=== PATIENT | female | born 1950 | race Caucasian/White ===

== ENCOUNTER 2017-03-13 06:17 | Emergency (ER) | payer MEDICARE ==
[2017-03-13] MEDS ORDERED: KETOROLAC 30 MG/ML 1 ML VIAL IVP STA (07:12)
[2017-03-13] MEDS ORDERED: ONDANSETRON 4 MG/2 ML VIAL IVP STA (07:12)
[2017-03-13] MEDS ORDERED: SODIUM CHLORIDE 0.9% 1,000 ML IV STA ×2 (07:12→07:31)
[2017-03-13] MEDS ORDERED: HYDROmorphone 1 MG/ML 1 ML SYRINGE IVP STA (07:12)
[2017-03-13 07:17] VITALS: RESP 18
--- NOTE | 2017-03-13 07:18 | ED ---
General Adult HPI - General Chief complaint: Abdominal Pain Stated complaint: vomiting, back pain Time Seen by Provider: 03/13/17 07:00 Source: patient, RN notes reviewed Mode of arrival: wheelchair Limitations: no limitations - History of Present Illness Initial comments: This is a 66-year-old female who presents emergency Department with a past medical history significant for kidney stones. Patient states her last treatment was last year. Patient states she started having pain on Thursday to felt exactly like her kidney stones. Patient states on the left flank it does not hurt to palpate. Patient states that she has had episodes of dry heaving. Patient states the pain radiates to the anterior abdomen little. Patient denies any fever chills per patient denies dysuria hematuria urinary frequency. Patient states this pain feels exactly the same as her kidney stone pain in the past. Patient states she's had multiple kidney stones. - Related Data Home Medications Medication Instructions Recorded Confirmed Aspirin [Adult Low Dose Aspirin EC] 81 mg PO DAILY 10/05/15 03/13/17 Cholecalciferol [Vitamin D3] 5,000 unit PO DAILY 10/05/15 03/13/17 Levothyroxine Sodium [Synthroid] 88 mcg PO DAILY 10/05/15 03/13/17 Losartan/Hydrochlorothiazide 1 tab PO DAILY 10/05/15 03/13/17 [Losartan-Hctz 100-25 mg Tab] Multivitamin,Therapeutic [Thera] 1 tab PO BID 03/13/17 03/13/17 Previous Rx's Medication Instructions Recorded Sulfamethox-Tmp 800-160Mg [Bactrim 1 each PO Q12HR #14 tab 03/13/17 DS 800-160 mg] Allergies Allergy/AdvReac Type Severity Reaction Status Date / Time No Known Allergies Allergy Verified 03/13/17 08:59 Review of Systems ROS Statement: Those systems with pertinent positive or pertinent negative responses have been documented in the HPI. ROS Other: All systems not noted in ROS Statement are negative. Past Medical History Past Medical History: Hypertension, Thyroid Disorder Additional Past Medical History / Comment(s): kidney stones History of Any Multi-Drug Resistant Organisms: None Reported Past Surgical History: Tubal Ligation Past Psychological History: No Psychological Hx Reported Smoking Status: Never smoker Past Alcohol Use History: None Reported Past Drug Use History: None Reported General Exam - General Exam Comments Initial Comments: GENERAL: Patient is well-developed and well-nourished. Patient is nontoxic and well- hydrated and is in mild distress. ENT: Neck is soft and supple. No significant lymphadenopathy is noted. Oropharynx is clear. Moist mucous membranes. Neck has full range of motion without eliciting any pain. EYES: The sclera were anicteric and conjunctiva were pink and moist. Extraocular movements were intact and pupils were equal round and reactive to light. Eyelids were unremarkable. PULMONARY: Unlabored respirations. Good breath sounds bilaterally. No audible rales rhonchi or wheezing was noted. CARDIOVASCULAR: There is a regular rate and rhythm without any murmurs gallops or rubs. ABDOMEN: Soft and nontender with normal bowel sounds. No palpable organomegaly was noted. There is no palpable pulsatile mass. Morbid obesity SKIN: Skin is clear with no lesions or rashes and otherwise unremarkable. NEUROLOGIC: Patient is alert and oriented x3. Cranial nerves II through XII are grossly intact. Motor and sensory are also intact. Normal speech, volume and content. Symmetrical smile. MUSCULOSKELETAL: Normal extremities with adequate strength and full range of motion. No lower extremity swelling or edema. No calf tenderness. LYMPHATICS: No significant lymphadenopathy is noted PSYCHIATRIC: Normal psychiatric evaluation. Normal interpersonal interactions appears functionally intact in deals appropriately with others. No signs of depression. No signs of anxiety. Limitations: no limitations Course Vital Signs 03/13/17 03/13/17 03/13/17 06:20 07:15 08:32 Temperature 98.2 F Pulse Rate 54 L 54 L 54 L Respiratory 16 18 18 Rate Blood Pressure 188/73 153/67 116/59 O2 Sat by Pulse 94 L 93 L 94 L Oximetry Medical Decision Making - Medical Decision Making CT shows a 0.4 cm kidney stone on the left proximal ureter with some mild hydronephrosis. Patient's urine showed possible urinary tract infectious I gave the patient 2 g of Rocephin. I went back in to see the patient she was much more comfortable and ready to go home. - Lab Data Result diagrams: 03/13/17 06:42 03/13/17 06:42 Lab Results 03/13/17 03/13/17 03/13/17 Range/Units 06:42 06:42 06:42 WBC 12.4 H (3.8-10.6) k/uL RBC 3.90 (3.80-5.40) m/uL Hgb 12.4 (11.4-16.0) gm/dL Hct 38.6 (34.0-46.0) % MCV 98.9 (80.0-100.0) fL MCH 31.6 (25.0-35.0) pg MCHC 32.0 (31.0-37.0) g/dL RDW 14.3 (11.5-15.5) % Plt Count 141 L (150-450) k/uL Neutrophils % 88 % Lymphocytes % 6 % Monocytes % 5 % Eosinophils % 0 % Basophils % 0 % Neutrophils # 10.9 H (1.3-7.7) k/uL Lymphocytes # 0.8 L (1.0-4.8) k/uL Monocytes # 0.6 (0-1.0) k/uL Eosinophils # 0.0 (0-0.7) k/uL Basophils # 0.0 (0-0.2) k/uL Sodium 141 (137-145) mmol/L Potassium 4.1 (3.5-5.1) mmol/L Chloride 103 (98-107) mmol/L Carbon Dioxide 27 (22-30) mmol/L Anion Gap 11 mmol/L BUN 39 H (7-17) mg/dL Creatinine 1.81 H (0.52-1.04) mg/dL Est GFR (MDRD) Af Amer 34 (>60 ml/min/1.73 sqM) Est GFR (MDRD) Non-Af 28 (>60 ml/min/1.73 sqM) Glucose 133 H (74-99) mg/dL Calcium 8.9 (8.4-10.2) mg/dL Total Bilirubin 1.4 H (0.2-1.3) mg/dL AST 24 (14-36) U/L ALT 37 (9-52) U/L Alkaline Phosphatase 80 (38-126) U/L Total Protein 6.7 (6.3-8.2) g/dL Albumin 3.8 (3.5-5.0) g/dL Amylase <30 L (30-110) U/L Lipase 40 (23-300) U/L Urine Color Yellow Urine Appearance Cloudy H (Clear) Urine pH 5.5 (5.0-8.0) Ur Specific [place] 1.015 (1.001-1.035) Urine Protein 1+ H (Negative) Urine Glucose (UA) Negative (Negative) Urine Ketones Negative (Negative) Urine Blood Large H (Negative) Urine Nitrite Positive H (Negative) Urine Bilirubin Negative (Negative) Urine Urobilinogen <2.0 (<2.0) mg/dL Ur Leukocyte Esterase Large H (Negative) Urine RBC >182 H (0-5) /hpf Urine WBC >182 H (0-5) /hpf Urine WBC Clumps Occasional H (None) /hpf Ur Squamous Epith Cells 2 (0-4) /hpf Urine Bacteria Occasional H (None) /hpf Critical Care Time Total Critical Care Time: 75 Disposition Clinical Impression: Kidney stone, Urinary tract infection Disposition: HOME SELF-CARE Condition: Good Instructions: Kidney Stones (ED), Urinary Tract Infection in Women (ED) Prescriptions: Sulfamethox-Tmp 800-160Mg [Bactrim DS 800-160 mg] 1 each PO Q12HR #14 tab Referrals: Keanu Villaseñor MD [Primary Care Provider] - 1-2 days Time of Disposition: 09:53
[2017-03-13] MEDS ORDERED: RX INFO: IV CONTRAST WAS GIVEN 1 EACH MISC MISCELLANE PRN (07:31)
[2017-03-13 07:32] LABS: Basophils % (A) 0 %; CH 31.6; CHCM 32.2; Eosinophils % (A) 0 %; HCT 38.6 % (34.0-46.0); HDW 2.36; HGB 12.4 gm/dL (11.4-16.0); Luc # (Auto) 0.08; Luc % (Auto) 1; Lymphocytes # (A) 0.8 k/uL (1.0-4.8); Lymphocytes % (A) 6 %; MCH 31.6 pg (25.0-35.0); MCV 98.9 fL (80.0-100.0); Mean Platelet Volume 8.2; Monocytes # (A) 0.6 k/uL (0-1.0); Monocytes % (A) 5 %; Neutrophils # (A) 10.9 k/uL (1.3-7.7); Neutrophils % (A) 88 %; RDW 14.3 % (11.5-15.5); WBC 12.4 k/uL (3.8-10.6); WBC (Perox) 13.49
[2017-03-13 07:37] LABS: Appearance,Urine Cloudy (Clear); Bacteria,Urine Occasional /hpf; Bilirubin,Urine Negative (Negative); Glucose,Urine (UA) Negative (Negative); Ketones,Urine Negative (Negative); Leukocyte Esterase,Urine Large (Negative); Nitrite,Urine Positive (Negative); PH, Urine 5.5 (5.0-8.0); Particle Count 7966; Protein,Urine 1+ (Negative); RBC,Urine >182 /hpf (0-5); Specific Gravity,Urine 1.015 (1.001-1.035); Squamous Epithelial Cell,Urine 2 /hpf (0-4); UA Billing (MACRO vs. MICRO) MICRO; Urobilinogen,Urine <2.0 mg/dL (<2.0); WBC,Urine >182 /hpf (0-5)
[2017-03-13 07:49] LABS: ALT 37 U/L (9-52); AST 24 U/L (14-36); Alkaline Phosphatase 80 U/L (38-126); Amylase <30 U/L (30-110); Anion Gap 11 mmol/L; Blood Urea Nitrogen 39 mg/dL (7-17); Calcium 8.9 mg/dL (8.4-10.2); Carbon Dioxide 27 mmol/L (22-30); Chloride 103 mmol/L (98-107); Glucose 133 mg/dL (74-99); Non-African American GFR(MDRD) 28 (>60 ml/min/1.73 sqM); Potassium 4.1 mmol/L (3.5-5.1); Sodium 141 mmol/L (137-145); Total Bilirubin 1.4 mg/dL (0.2-1.3); Total Protein 6.7 g/dL (6.3-8.2)
[2017-03-13] MEDS ORDERED: cefTRIAXone 2,000 MG in SODIUM CHLORIDE 0.9% 100 ML IVPB STA (08:12)
--- NOTE | 2017-03-13 08:29 | XR ---
Abdomen HISTORY: Pain, left flank pain Frontal view of the abdomen correlated to prior abdomen 04/26/2010, CT 03/13/2017 There is a calcification in the left hemipelvis which likely represents a phlebolith. Patient's proxi mal left ureteral calculus is not well seen likely due to technique, patient body habitus. There is o verlying bowel gas. The large right sided renal pelvic calcification is also obscured. There is no genevieve wel obstruction or pneumoperitoneum. IMPRESSION: Nephrolithiasis in bilateral kidneys and left ureter is better seen on CT. Bowel gas obsc ures detail.
[2017-03-13] MEDS ORDERED: PHENYTOIN SODIUM INJ 1,000 MG in SODIUM CHLORIDE 0.9% 100 ML IVPB STA (08:35)
--- NOTE | 2017-03-13 09:01 | CT ---
EXAMINATION TYPE: CT abdomen pelvis wo con DATE OF EXAM: 03/13/2017 COMPARISON: NONE INDICATION: Pt c/o Lt flank pain, hematuria, stone history DLP: 2031.1 mGycm, Automated exposure control for dose reduction was used. CONTRAST: 0 mL of Omnipaque 350. Study performed without Oral Contrast TECHNIQUE: Axial images were obtained from above the diaphragm to the pubic rami in the axial plane a t 5 mm thick sections. Reconstructed images are reviewed on the computer in the coronal plane. FINDINGS: Limited CT sections are obtained the lung bases. The lung bases are clear. Coronary artery calcific ation is noted. CT ABDOMEN: Liver: Normal Spleen: Normal Pancreas: There is fatty infiltration to the pancreas. Some atrophy is present. Adrenal glands: The adrenal glands are normal. Gallbladder: Normal Kidneys: Some mild perinephric stranding is present. Several nonobstructing renal stones are present bilaterally. This includes a 0.3 cm calcification posterior upper pole left kidney is 0.2 cm calcific ation mid lateral left kidney and a 0.8 cm calcification at the inferior pole left kidney. There is a n extrarenal pelvis. Mild left hydronephrosis is present. There is a proximal left ureteral stone concepcion suring 0.4 cm. Series 3 image 74. Within the right kidney is a large calcification in the renal pelvi s measuring 1.3 x 2.2 cm. Hydroureter is not identified. No renal masses are evident. No cysts are present. Aorta: Vascular calcification is within the aorta. Inferior vena cava: Normal. CT PELVIS: Loops of bowel within the abdomen and pelvis are normal. Study is without oral contrast limiting bowel loop evaluation. Appendix: Normal as visualized. Urinary bladder: Decompressed with limited evaluation. Genitourinary structures: Uterus appears somewhat full for the patient age. Adnexal regions are clear . Osseous structures: No suspicious lytic or sclerotic lesions. IMPRESSIONS: 1. 0.4 cm proximal left ureteral stone with mild left hydronephrosis and hydroureter. 2. Bilateral nonobstructing renal stones. Large calcifications in the right renal pelvis.
[2017-03-13 10:30] VITALS: BP 126/61; PULSE 50; TEMP 97.1
== END 2017-03-13 10:28 | disposition home or self-care (01) ==
LOC: EC 06:17
DX: N20.0 Calculus of kidney (principal); N39.0 Urinary tract infection, site not specified; I10 Essential (primary) hypertension; E07.9 Disorder of thyroid, unspecified; Z98.51 Tubal ligation status; E66.01 Morbid (severe) obesity due to excess calories; Z68.42 Body mass index [BMI] 45.0-49.9, adult; Z79.82 Long term (current) use of aspirin; Z79.899 Other long term (current) drug therapy
CPT/HCPCS: 99285 ×2; 96365 ×2; 96375 ×4; 96361 ×2; 36415; 80053; 82150; 83690; 85025; 81001; 74000; 74176; J2405; J0696; J1885; J1170

== ENCOUNTER → 2018-09-07 | Outpatient (CLI) | payer MEDICARE ==
--- NOTE | 2018-09-07 09:05 | US ---
EXAMINATION TYPE: US gallbladder DATE OF EXAM: 09/07/2018 COMPARISON: NONE CLINICAL HISTORY: R10.11 R upper quad pain. RLQ pain, history of kidney stones EXAM MEASUREMENTS: Liver Length: 15.5 cm Gallbladder Wall: 0.3 cm CBD: 0.6 cm Right Kidney: 11.1 x 5.1 x 5.5 cm Pancreas: tail obscured by overlying bowel content Liver: There may be some mild fatty infiltration within the liver. No discrete masses or cysts are e vident. Gallbladder: no evidence of stones Evidence for sonographic Asher's sign: no CBD: wnl Right Kidney: stones noted, largest at mid = 1.9cm . This correlates with the CT finding of 017. IMPRESSION: 1. Nonobstructing large right renal pelvic stone. 2. Mild fatty infiltration liver.
== END ==
LOC: RADUSWWP 07:24
PROVIDERS: ATTEND Family Medicine
DX: K76.0 Fatty (change of) liver, not elsewhere classified (principal); N20.0 Calculus of kidney
CPT/HCPCS: 76705

== ENCOUNTER 2018-10-01 09:32 | Inpatient (IN) | payer MEDICARE ==
[2018-10-01 10:31] LABS: Basophils % (A) 0 %; Eosinophils # (A) 0.2 k/uL (0-0.7); Eosinophils % (A) 2 %; HCT 44.8 % (34.0-46.0); HGB 14.5 gm/dL (11.4-16.0); Lymphocytes # (A) 1.2 k/uL (1.0-4.8); Lymphocytes % (A) 11 %; MCH 30.5 pg (25.0-35.0); MCHC 32.3 g/dL (31.0-37.0); MCV 94.6 fL (80.0-100.0); Mean Platelet Volume 7.7; Monocytes # (A) 0.4 k/uL (0-1.0); Monocytes % (A) 4 %; Neutrophils # (A) 9.1 k/uL (1.3-7.7); Neutrophils % (A) 82 %; Platelet Count 120 k/uL (150-450); RBC 4.74 m/uL (3.80-5.40); RDW 13.6 % (11.5-15.5); WBC 11.1 k/uL (3.8-10.6)
[2018-10-01 10:45] LABS: Albumin 4.1 g/dL (3.5-5.0); Calcium 9.3 mg/dL (8.4-10.2); Magnesium 1.8 mg/dL (1.6-2.3); Potassium 4.4 mmol/L (3.5-5.1); Total Bilirubin 1.5 mg/dL (0.2-1.3); Total Protein 6.7 g/dL (6.3-8.2)
[2018-10-01] MEDS ORDERED: NALOXONE 0.4 MG/ML 1 ML VIAL IV PRN (10:47)
[2018-10-01] MEDS ORDERED: HEPARIN SODIUM,PORCINE 5,000 UNIT/ML 1 ML VIAL IV STA (10:48)
[2018-10-01] MEDS ORDERED: ASPIRIN 81 MG PO STA (10:48)
[2018-10-01] MEDS ORDERED: ATORVASTATIN 80 MG TAB PO STA (10:48)
--- NOTE | 2018-10-01 10:51 | XR ---
EXAMINATION TYPE: XR chest 2V DATE OF EXAM: 10/01/2018 COMPARISON: NONE TECHNIQUE: PA and lateral views submitted. HISTORY: Difficulty breathing FINDINGS: The lungs are clear and there is no pneumothorax, pleural effusion, or focal pneumonia. Hypertrophi c and degenerative change of the spine. Arthropathy of the AC joints. No overt failure. Mild prominen ce the pulmonary arteries. IMPRESSION: 1. No acute process. Mild prominence the pulmonary arteries correlate for pulmonary arterial hyperten aleah.
--- NOTE | 2018-10-01 10:53 | ED ---
General Adult HPI - General Chief complaint: Shortness of Breath Stated complaint: dizziness Time Seen by Provider: 10/01/18 09:52 Source: patient, RN notes reviewed, old records reviewed Mode of arrival: wheelchair Limitations: no limitations - History of Present Illness Initial comments: 67-year-old female presenting with exertional dyspnea and diaphoresis. Symptoms began over the past 24 hours. Denies any chest pain, denies jaw pain or arm pain. She has no history of coronary artery disease. No history diabetes. She is a nonsmoker. She has no history of DVT or PE. She has no complaints time my evaluation, no dyspnea, no nausea, no chest pain. Denies abdominal pain vomiting or diarrhea. Denies fever or chills. Denies cough. She did have URI symptoms approximately 1 month prior, she states the symptoms have resolved. - Related Data Home Medications Medication Instructions Recorded Confirmed Levothyroxine Sodium [Synthroid] 88 mcg PO DAILY 10/05/15 10/01/18 Losartan/Hydrochlorothiazide 1 tab PO DAILY 10/05/15 10/01/18 [Losartan-Hctz 100-25 mg Tab] Theralith 2 mg PO HS 10/01/18 10/01/18 Theralith 3 tab PO DAILY 10/01/18 10/01/18 Allergies Allergy/AdvReac Type Severity Reaction Status Date / Time No Known Allergies Allergy Verified 10/01/18 10:17 Review of Systems ROS Statement: Those systems with pertinent positive or pertinent negative responses have been documented in the HPI. ROS Other: All systems not noted in ROS Statement are negative. Past Medical History Past Medical History: Hypertension, Thyroid Disorder Additional Past Medical History / Comment(s): kidney stones History of Any Multi-Drug Resistant Organisms: None Reported Past Surgical History: Tubal Ligation Past Psychological History: No Psychological Hx Reported Smoking Status: Never smoker Past Alcohol Use History: None Reported Past Drug Use History: None Reported General Exam Limitations: no limitations General appearance: alert, in no apparent distress Head exam: Present: atraumatic, normocephalic Eye exam: Present: normal appearance, PERRL ENT exam: Present: normal exam Neck exam: Present: normal inspection. Absent: tenderness, meningismus Respiratory exam: Present: normal lung sounds bilaterally. Absent: respiratory distress, wheezes Cardiovascular Exam: Present: regular rate, normal rhythm GI/Abdominal exam: Present: soft. Absent: distended, tenderness, guarding Extremities exam: Present: normal inspection, normal capillary refill. Absent: pedal edema Neurological exam: Present: alert, oriented X3, CN II-XII intact. Absent: motor sensory deficit Psychiatric exam: Present: normal affect, normal mood Skin exam: Present: warm, dry, intact. Absent: cyanosis, diaphoretic Course Vital Signs 10/01/18 09:44 Temperature 97.4 F L Pulse Rate 94 Respiratory 18 Rate Blood Pressure 104/71 O2 Sat by Pulse 95 Oximetry - Reevaluation(s) Reevaluation #1: 10/01/18 10:[address] Garrett regarding EKG changes, patient will be taken to the Release And Technical Records Clerk for urgent heart cath. EKG Findings - EKG Comments: EKG Findings:: EKG: Normal sinus rhythm, incomplete right bundle, age indeterminant inferior and anterior infarct, rate of 92, Q ROS 102, NE interval 176, QTC 487, there is Q-wave and T-wave inversion in the inferior leads, there is question ST segment elevation in lead 3, and V3, no reciprocal change. Medical Decision Making - Medical Decision Making 67-year-old female with dyspnea and diaphoresis. She is asymptomatic at the time my evaluation. EKG is obtained, there is some concern for ischemia with T- wave inversion in the inferior leads, and minimal ST segment elevation in lead 3. This is reviewed by cardiology, given the symptoms patient will be taken urgently to [facility] And Technical Records Clerk. Laboratory studies, chest x-ray are pending. Patient is given aspirin, Lipitor, heparin emergency department and taken urgently to the Release And Technical Records Clerk. Case is discussed with the admitting physician Dr. Walters - Lab Data Result diagrams: 10/01/18 10:15 10/01/18 10:15 Lab Results 10/01/18 10/01/18 Range/Units 10:15 10:15 WBC 11.1 H (3.8-10.6) k/uL RBC 4.74 (3.80-5.40) m/uL Hgb 14.5 (11.4-16.0) gm/dL Hct 44.8 (34.0-46.0) % MCV 94.6 (80.0-100.0) fL MCH 30.5 (25.0-35.0) pg MCHC 32.3 (31.0-37.0) g/dL RDW 13.6 (11.5-15.5) % Plt Count 120 L (150-450) k/uL Neutrophils % 82 % Lymphocytes % 11 % Monocytes % 4 % Eosinophils % 2 % Basophils % 0 % Neutrophils # 9.1 H (1.3-7.7) k/uL Lymphocytes # 1.2 (1.0-4.8) k/uL Monocytes # 0.4 (0-1.0) k/uL Eosinophils # 0.2 (0-0.7) k/uL Basophils # 0.0 (0-0.2) k/uL Sodium 142 (137-145) mmol/L Potassium 4.4 (3.5-5.1) mmol/L Chloride 107 (98-107) mmol/L Carbon Dioxide 26 (22-30) mmol/L Anion Gap 9 mmol/L BUN 31 H (7-17) mg/dL Creatinine 1.00 (0.52-1.04) mg/dL Est GFR (CKD-EPI)AfAm 67 (>60 ml/min/1.73 sqM) Est GFR (CKD-EPI)NonAf 58 (>60 ml/min/1.73 sqM) Glucose 167 H (74-99) mg/dL Calcium 9.3 (8.4-10.2) mg/dL Magnesium 1.8 (1.6-2.3) mg/dL Total Bilirubin 1.5 H (0.2-1.3) mg/dL AST 30 (14-36) U/L ALT 39 (9-52) U/L Alkaline Phosphatase 83 (38-126) U/L Total Protein 6.7 (6.3-8.2) g/dL Albumin 4.1 (3.5-5.0) g/dL Critical Care Time Critical Care Time: Yes Total Critical Care Time: 25 Disposition Clinical Impression: Dyspnea, STEMI (ST elevation myocardial infarction) Disposition: ADMITTED IP TO THIS HOSP Condition: Serious Is patient prescribed a controlled substance at d/c from ED?: No Referrals: Keanu Villaseñor MD [Primary Care Provider] - 1-2 days Decision to Admit Reason: Admit from EC Decision Date: 10/01/18 Decision Time: 10:53
[2018-10-01 11:01] LABS: Partial Thromboplastin Time 23.3 sec (22.0-30.0); Prothrombin Time 10.8 sec (9.0-12.0)
[2018-10-01] MEDS ORDERED: VERAPAMIL 2.5 MG/ML 2 ML AMP ONE (11:06)
[2018-10-01 11:13] LABS: D-Dimer 12.54 mg/L FEU (<0.60)
[2018-10-01] MEDS ORDERED: SODIUM CHLORIDE 0.9% 1,000 ML IV ONE (11:16)
[2018-10-01] MEDS ORDERED: IV FLUID CONTINUATION 1,000 ML IV ONE (11:16)
[2018-10-01] MEDS: LIDOCAINE 1% INJ 10MG/ML (20 ML MDV) SQ ONE ×2 (11:19→11:27)
[2018-10-01] MEDS ORDERED: MIDAZOLAM (PF) 2 MG/2 ML VIAL IVP ONE (11:19)
[2018-10-01] MEDS ORDERED: IOPAMIDOL-370 100ML BTL INJ ONE (11:32)
[2018-10-01] MEDS ORDERED: RX INFO: IV CONTRAST WAS GIVEN 1 EACH MISC MISCELLANE PRN (11:43)
[2018-10-01] MEDS ORDERED: SODIUM CHLORIDE 0.9% 1,000 ML IV SCH (11:45)
--- NOTE | 2018-10-01 11:47 | P.CRDCN ---
History of Present Illness Consult date: 10/01/18 Chief complaint: Shortness of breath History of present illness: This is a pleasant 67-year-old female patient with a past medical hist ory significant for hypertension as well as hypothyroidism presented to the emergency room complaining of shortness of breath. The patient was in her usual state of health yesterday when she noticed shortness of breath with exertion associated with Phoresis. No symptoms of chest pain or chest discomfort, no symptoms of jaw pain, arm pain, dizziness, heart racing, or syncope. No established history of coronary artery disease or congestive heart failure or cardiac arrhythmia. In the emergency room, the EKG showed sinus rhythm with ST changes concerning for ischemia. The troponin came in to be slightly elevated. Because of that an emergent heart catheterization was advised. Heart cathete rization revealed normal coronaries. The left ventricular end-diastolic pressure was also within normal limits. Subsequently we knew that the patient d-dimer came in to be elevated. She is in process of having a CTA of the chest. Past Medical History Past Medical History: Hypertension, Thyroid Disorder Additional Past Medical History / Comment(s): kidney stones History of Any Multi-Drug Resistant Organisms: None Reported Past Surgical History: Tubal Ligation Past Psychological History: No Psychological Hx Reported Smoking Status: Never smoker Past Alcohol Use History: None Reported Past Drug Use History: None Reported Medications and Allergies Home Medications Medication Instructions Recorded Confirmed Type Levothyroxine Sodium [Synthroid] 88 mcg PO DAILY 10/05/15 10/01/18 History Losartan/Hydrochlorothiazide 1 tab PO DAILY 10/05/15 10/01/18 History [Losartan-Hctz 100-25 mg Tab] Theralith 2 mg PO HS 10/01/18 10/01/18 History Theralith 3 tab PO DAILY 10/01/18 10/01/18 History Allergies Allergy/AdvReac Type Severity Reaction Status Date / Time No Known Allergies Allergy Verified 10/01/18 10:17 Physical Exam Vitals: Vital Signs Temp Pulse Resp BP Pulse Ox 10/01/18 10:59 88 18 109/88 99 10/01/18 09:44 97.4 F L 94 18 104/71 95 Intake and Output 09/30/18 10/01/18 10/01/18 22:59 06:59 14:59 Intake Total 100 Balance 100 Intake: IV 100 Other: Weight 126.099 kg - Constitutional General appearance: no acute distress - Respiratory Respiratory: bilateral: CTA - Cardiovascular Rhythm: regular Heart sounds: normal: S1, S2 Abnormal Heart Sounds: systolic murmur Results 10/01/18 10:15 10/01/18 10:15 Cardiac Enzymes 10/01/18 10/01/18 Range/Units 10:15 10:15 AST 30 (14-36) U/L Troponin I 0.267 H* (0.000-0.034) ng/mL Coagulation 10/01/18 Range/Units 10:15 PT 10.8 (9.0-12.0) sec APTT 23.3 (22.0-30.0) sec CBC 10/01/18 Range/Units 10:15 WBC 11.1 H (3.8-10.6) k/uL RBC 4.74 (3.80-5.40) m/uL Hgb 14.5 (11.4-16.0) gm/dL Hct 44.8 (34.0-46.0) % Plt Count 120 L (150-450) k/uL Comprehensive Metabolic Panel 10/01/18 Range/Units 10:15 Sodium 142 (137-145) mmol/L Potassium 4.4 (3.5-5.1) mmol/L Chloride 107 (98-107) mmol/L Carbon Dioxide 26 (22-30) mmol/L BUN 31 H (7-17) mg/dL Creatinine 1.00 (0.52-1.04) mg/dL Glucose 167 H (74-99) mg/dL Calcium 9.3 (8.4-10.2) mg/dL AST 30 (14-36) U/L ALT 39 (9-52) U/L Alkaline Phosphatase 83 (38-126) U/L Total Protein 6.7 (6.3-8.2) g/dL Albumin 4.1 (3.5-5.0) g/dL Current Medications Generic Name Dose Route Start Last Admin Trade Name Freq PRN Reason Stop Dose Admin Sodium Chloride 1,000 mls @ 75 mls/hr 10/01/18 11:45 Saline 0.9% IV 10/01/18 19:46 .[id number] AYESHA Miscellaneous Information 1 each 10/01/18 11:43 Rx Info: Iv Contrast Was Given MISCELLANE 10/03/18 11:43 DAILY PRN Per Protocol Naloxone HCl 0.2 mg 10/01/18 10:47 Narcan IV Q2M PRN Opioid Reversal Intake and Output 09/30/18 10/01/18 10/01/18 22:59 06:59 14:59 Intake Total 100 Balance 100 Intake: IV 100 Other: Weight 126.099 kg Patient Weight 10/02/18 06:59 Weight 126.099 kg 10/01/18 10:15 10/01/18 10:15 Assessment and Plan Assessment: assessment #1 shortness of breath associated with sweating #2 hypertension #3 hypothyroidism #4 elevated d-dimer Plan #1 the heart catheterization revealed normal coronaries #2 the patient is in process of having CTA of the chest #3 obtain an echocardiogram was Doppler #4 follow-up with the patient Thank you for allowing us participate in her care
--- NOTE | 2018-10-01 12:05 | CC ---
CARDIAC CATHETERIZATION REPORT DATE OF SERVICE: October 01, 2018 PERFORMING PHYSICIAN: Sony Garrett MD, industrial controls technician. PROCEDURE PERFORMED: 1. Selective right and left coronary angiogram. 2. Left heart catheterization. INDICATION: This is a 67-year-old female patient who presented to the emergency room with shortness of breath associated with sweating. There was some concern regarding severe underlying coronary artery disease and because of that, heart catheterization was advised. APPROACH: Right common femoral artery. COMPLICATION: None LEVEL OF SEDATION: Moderate with sedation length of 20 minutes. PROCEDURE DESCRIPTION: After obtaining an informed consent, the patient was brought to cardiac dental lab technician. The right common femoral artery was cannulated using micropuncture technique, the micropuncture wire passed easily then I placed a 6-Pakistani sheath in the right common femoral artery. After that I did selective right and left coronary angiogram using JR4 and JL4 catheter. Left heart catheterization was performed using 6-Pakistani pigtail catheter. Procedure was completed without any complication. SELECTIVE CORONARY ANGIOGRAM: 1. The right coronary artery is a large caliber vessel. It is a dominant vessel and appeared to be angiographically normal. 2. Left main is angiographically normal. It bifurcates into left circumflex and left anterior descending artery. 3. Left circumflex is a large caliber vessel. It is a nondominant vessel and appeared to be angiographically normal. The midportion gives rise into a large OM branch which appeared to be normal. 4. The LAD: The proximal LAD appeared to be angiographically normal. The mid LAD appeared to have a segment of myocardial bridging. The LAD distally appeared to be normal. The LAD does not reach the apex. It gives rise into 2 diagonal branches in the midportion and one diagonal branch in the proximal portion. HEMODYNAMICS: The left ventricular end-diastolic pressure was 10 mmHg. No gradient was identified across the aortic valve. CONCLUSION: 1. Normal coronary angiogram. 2. Normal left ventricular end-diastolic pressure. MMODL / IJN: [id number] /
--- NOTE | 2018-10-01 12:29 | CT ---
EXAMINATION TYPE: CT angio chest DATE OF EXAM: 10/01/2018 12:08 PM COMPARISON: None HISTORY: Shortness of breath and chest pain CT DLP: 529.7 mGycm Automated exposure control for dose reduction was used. CONTRAST: CTA scan of the thorax is performed with IV Contrast, patient injected with 80 mL of Isovue 370, pulm onary embolism protocol. . FINDINGS: LUNGS: Biapical pleural. No pneumothorax. No consolidation. No pleural effusion or pneumothorax. No c onsolidative pneumonia. 2 mm apical lung nodule on the right noted. MEDIASTINUM: There are large bilateral central pulmonary embolism extending into the secondary branch es and distal branches bilaterally. There is involvement of both main pulmonary arteries. The RV :LV ratio is greater than 1 suggestive of right ventricular strain. Report called to the patient's nurse in the ICU. OTHER: There is air within the SVC, bilateral subclavian vein and subcutaneous veins of the anterior chest. Small amount of pneumomediastinum not excluded. Hypertrophic and degenerative change of the v ertebral column. IMPRESSION: 1. Massive bilateral central pulmonary embolism extending into the secondary and distal branches bila terally. Report called to the referring physician and nurse. Correlate for right ventricular strain. 2. There is air within the SVC and bilateral subclavian vein as well as smaller venous structures wit hin the anterior chest. Air noted on image 46 within the anterior mediastinum likely is related to ve nous air rather than pneumomediastinum but should be correlated clinically. Etiology uncertain correl ate clinically. 3. There is a 2 mm right upper lobe apical lung nodule. Recommend 6 month follow-up to confirm stabil ity.
[2018-10-01] MEDS ORDERED: HEPARIN SODIUM,PORCINE 5,000 UNIT/ML 1 ML VIAL IV PRN (13:04)
[2018-10-01] MEDS ORDERED: HEPARIN SOD,PORK IN 0.45% NACL 25,000 UNIT in 0.45% NACL 1 250ML.BAG IV SCH (13:15)
[2018-10-01 14:22] VITALS: RESP 16; TEMP 97.3
[2018-10-01 14:48] VITALS: BP 135/80; PULSE 82
[2018-10-02] MEDS ORDERED: LEVOTHYROXINE 88 MCG TAB PO SCH (06:30)
[2018-10-02] MEDS ORDERED: LOSARTAN-HCTZ 50-12.5 MG 1 EACH TAB PO SCH (09:00)
--- NOTE | 2018-10-02 10:13 | HP ---
HISTORY AND PHYSICAL HISTORY AND PHYSICAL AND DISCHARGE SUMMARY: DATE OF ADMISSION: 10/01/2018 DATE OF TRANSFER: 10/01/2018 DATE OF SERVICE: 10/01/2018. PRESENTING COMPLAINT: Short of breath. HISTORY OF PRESENTING COMPLAINT: This is a pleasant 67-year-old patient of Dr. Keanu Villaseñor whose chronic stable medical conditions include hypertension, hypothyroid, kidney stones, morbid obesity. Patient earlier today presented to the ER as patient had been having increasing shortness of breath that started in a span of about over 24 hours. Also patient was getting diaphoretic. There was no chest pain, no jaw pain. Denies any prior cardiac history. There was no leg swelling or increased, normal mobility, and patient presented to the ER. The patient's EKG showed some changes in the inferior wall with flipped T- waves and troponin was 0.267. Hence from the ER, Cardiology was called and patient was taken to the director of laboratory operations where coronaries came back to be normal. The patient's D-dimer was 12.5. Subsequently from the director of laboratory operations, the patient went for a chest CTA and patient was found to have bilateral central pulmonary embolism extending into the secondary branches and distal processes bilaterally with involvement of both the main pulmonary arteries. Also, there was significant ventricular strain. The patient was then sent to the extended care unit and then admitted to the telemetry floor where I saw the patient and her . There has been no leg swelling. REVIEW OF SYSTEMS: CONSTITUTIONAL: None. HEENT: None. RESPIRATORY: As above. CARDIOVASCULAR: As above GASTROINTESTINAL: None. GENITOURINARY: None. MUSCULOSKELETAL: Some pain in the joints. DERMATOLOGICAL: None. HEMATOLOGIC: None. LYMPHATICS: None. PSYCHIATRY: None. NEUROLOGICAL: None. PAST MEDICAL HISTORY: Hypertension, hypothyroid, kidney stones. PAST SURGICAL HISTORY: Tubal ligation. SOCIAL HISTORY: No smoking, no alcohol. . FAMILY HISTORY: Reviewed, noncontributory to presentation. HOME MEDICATIONS: 1. Theralith 2 mg in the evening, 3 tablets in the morning. 2. Losartan hydrochlorothiazide 1 tablet p.o. daily, 100/25. 3. Synthroid 88 mcg a day. ALLERGIES: None. PHYSICAL EXAMINATION: On examination, vital signs on presentation, temperature 97.4 pulse 94, respiratory 18, blood pressure 104/71, pulse ox 95% on room air. GENERAL APPEARANCE: Well built, BMI 42.3. Lying in bed, not in distress/ EYES: Pupils equal. Conjunctivae normal. HEENT: External appearance of nose and ears normal. Oral cavity normal. NECK: JVD not raised. Mass not palpable. RESPIRATORY: Effort increased. LUNGS: Distant breath sounds. CARDIOVASCULAR: Heart sounds muffled. No edema. ABDOMEN: Distended, soft. Liver and spleen not palpable. LYMPHATIC: No lymph nodes palpable in the neck and axilla. PSYCHIATRY: Alert and oriented x3. Mood and affect normal. NEUROLOGICAL: Pupils equal. Cranial nerves grossly intact. Power and sensation grossly intact. INVESTIGATIONS: White count 9.1, hemoglobin 14.5, platelets 120. D-dimer 12.5. Potassium 4.4, BUN 31, creatinine 1.0. Troponin I 0.0267. EKG tracing personally reviewed by me shows some flipped T-waves. Chest x-ray film personally reviewed by me, no major abnormalities noted. Chest CTA showed bilateral pulmonary embolism with right ventricular strain. ASSESSMENT: 1. Acute bilateral massive pulmonary embolism causing right ventricular strain. 2. Positive troponin, likely from right ventricular strain from massive pulmonary embolism. 3. Cardiac catheterization showing normal coronaries. 4. Morbid obesity, body mass index 42.3. 5. Essential hypertension. 6. Hypothyroidism. 7. Chronic kidney disease/nephrolithiasis. PLAN: I discussed the care with Dr. Garrett from Cardiology given the radiological findings and he agreed that the patient should be transferred to a higher level of care. Also spoke to Dr. Miles on the phone about the same. Then I contacted Dr. Wright at [facility] who was in the OR and I spoke to him over the phone. He did accept the patient. Prior to this, I already spoke to the patient and her and they were agreeable for transfer for higher level of care for intervention. Earlier Dr. Randhawa from the ER had spoken to him. He has already ordered IV heparin. I spoke to the family preservation caseworker and the nurse and made arrangements for patient to be transferred down. This is both a history physical and discharge summary on this patient. MMODL / IJN: [id number] /
--- NOTE | 2018-10-02 13:52 | DS ---
DISCHARGE SUMMARY ADDENDUM: For my discharge summary, please refer to my H and P as dictated before. MMMERCYL / IJN: [id number] /
--- NOTE | 2018-10-03 07:41 | ECHOF ---
Referral Reason:sob MEASUREMENTS -------- HEIGHT: 172.7 cm WEIGHT: 126.1 kg BP: 109/88 RVIDd: 3.5 cm (< 3.3) IVSd: 1.5 cm (0.6 - 1.1) LVIDd: 2.9 cm (3.9 - 5.3) LVPWd: 1.3 cm (0.6 - 1.1) IVSs: 1.7 cm LVIDs: 2.2 cm LVPWs: 1.7 cm LA Diam: 3.0 cm (2.7 - 3.8) LAESV Index (A-L): 13.95 ml/m Ao Diam: 3.3 cm (2.0 - 3.7) AV Cusp: 2.5 cm (1.5 - 2.6) MV EXCURSION: 12.690 mm (> 18.000) MV EF SLOPE: 14 mm/s (70 - 150) EPSS: 0.7 cm MV E Elia: 0.53 m/s MV DecT: 301 ms MV A Elia: 1.07 m/s MV E/A Ratio: 0.50 RAP: 15.00 mmHg RVSP: 51.64 mmHg FINDINGS -------- Sinus rhythm. This was a technically adequate study. The left ventricular size is normal. There is moderate concentric left ventricular hypertrophy. O verall left ventricular systolic function is normal with, an EF between 60 - 65 %. The right ventricle is moderately enlarged. The left atrial size is normal. The right atrium is normal in size. The aortic valve is trileaflet and appears structurally normal. Mild mitral annular calcification present. There is trace mitral regurgitation. Vgki-xy-apxbeezn tricuspid regurgitation present. There is moderate pulmonary hypertension. The r ight ventricular systolic pressure, as measured by Doppler, is 51.64mmHg. Trace/mild (physiologic) pulmonic regurgitation. The aortic root size is normal. The inferior vena cava is dilated with no significant inspiratory collapse which is consistent estima marianna right atrial pressure of >15 mmHg. There is no pericardial effusion. CONCLUSIONS -------- 1. Sinus rhythm. 2. This was a technically adequate study. 3. The left ventricular size is normal. 4. There is moderate concentric left ventricular hypertrophy. 5. Overall left ventricular systolic function is normal with, an EF between 60 - 65 %. 6. The right ventricle is moderately enlarged. 7. The left atrial size is normal. 8. The right atrium is normal in size. 9. The aortic valve is trileaflet and appears structurally normal. 10. Mild mitral annular calcification present. 11. There is trace mitral regurgitation. 12. Fpey-zi-oxuodnkf tricuspid regurgitation present. 13. There is moderate pulmonary hypertension. 14. The right ventricular systolic pressure, as measured by Doppler, is 51.64mmHg. 15. Trace/mild (physiologic) pulmonic regurgitation. 16. The aortic root size is normal. 17. The inferior vena cava is dilated with no significant inspiratory collapse which is consistent es timated right atrial pressure of >15 mmHg. 18. There is no pericardial effusion. PIT RECORDER: Sandra Rod RDCS
== END 2018-10-01 14:36 | disposition short-term general hospital (02) | DRG 176 ==
LOC: EC 09:32 → 3SCARD 10:47 → 2SICU 11:11 → 3SCARD 12:30
PROVIDERS: ADMIT Hospitalist; ATTEND Hospitalist
PROC: B2111ZZ Fluoroscopy of Multiple Coronary Arteries using Low Osmolar Contrast (ICD-10-PCS; 2018-10-01)
PROC: 4A023N7 Measurement of Cardiac Sampling and Pressure, Left Heart, Percutaneous Approach (ICD-10-PCS; principal; 2018-10-01 10:40)
DX: I26.99 Other pulmonary embolism without acute cor pulmonale (principal); Z68.41 Body mass index [BMI] 40.0-44.9, adult; E66.01 Morbid (severe) obesity due to excess calories; N18.9 Chronic kidney disease, unspecified; E03.9 Hypothyroidism, unspecified; I12.9 Hypertensive chronic kidney disease with stage 1 through stage 4 chronic kidney disease, or unspecified chronic kidney disease; Z98.51 Tubal ligation status; Z79.890 Hormone replacement therapy; Z87.442 Personal history of urinary calculi
CPT/HCPCS: 36415; 71046; 71275; 80053; 83735; 83880; 84484; 85025; 85379; 85610; 85730; 93005; 93306; 93458; 96374; 99285

== ENCOUNTER 2018-10-16 09:02 | Emergency (ER) | payer MEDICARE ==
--- NOTE | 2018-10-16 09:35 | ED ---
General Adult HPI - General Chief complaint: Urogenital Stated complaint: POSS UTI Time Seen by Provider: 10/16/18 09:09 Source: patient, EMS, RN notes reviewed, old records reviewed Mode of arrival: EMS Limitations: no limitations - History of Present Illness Initial comments: 59-year-old female presents returns today for evaluation for urinary tract i nfection symptoms, frequent urination and dysuria as well as hematuria. Patient reports that she is currently staying at [facility] after being hospitalized for bilateral pulmonary embolisms at [facility]. Patient reports that she's been at [facility] October 08. She states that she was having the symptoms 3 days ago and had urine sample and blood work obtained. She reports that she was unable to get the results from the providers at [facility] and was transferred here for evaluation. Patient states that she's not on any antibiotics currently. She has history of kidney stones but denies any flank pain. She denies fevers or chills. Patient states that she otherwise is improving since her recent diagnosis of bilateral PEs. She was placed on several toe at this time. - Related Data Home Medications Medication Instructions Recorded Confirmed Levothyroxine Sodium [Synthroid] 88 mcg PO DAILY 10/05/15 10/01/18 Losartan/Hydrochlorothiazide 1 tab PO DAILY 10/05/15 10/01/18 [Losartan-Hctz 100-25 mg Tab] Theralith 2 mg PO HS 10/01/18 10/01/18 Theralith 3 tab PO DAILY 10/01/18 10/01/18 Previous Rx's Medication Instructions Recorded Cephalexin [Keflex] 500 mg PO Q8HR #21 cap 10/16/18 Phenazopyridine HCl [Pyridium] 100 mg PO TID #9 tab 10/16/18 Allergies Allergy/AdvReac Type Severity Reaction Status Date / Time No Known Allergies Allergy Verified 10/16/18 09:05 Review of Systems ROS Statement: Those systems with pertinent positive or pertinent negative responses have been documented in the HPI. ROS Other: All systems not noted in ROS Statement are negative. Past Medical History Past Medical History: Hypertension, Pulmonary Embolus (PE), Thyroid Disorder Additional Past Medical History / Comment(s): kidney stones History of Any Multi-Drug Resistant Organisms: None Reported Past Surgical History: Tubal Ligation Past Psychological History: No Psychological Hx Reported Smoking Status: Never smoker Past Alcohol Use History: None Reported Past Drug Use History: None Reported General Exam - General Exam Comments Initial Comments: 67-year-old female. Alert and oriented 3. No significant distress. Limitations: no limitations General appearance: alert, in no apparent distress Head exam: Present: atraumatic, normocephalic, normal inspection Eye exam: Present: normal appearance, PERRL, EOMI. Absent: scleral icterus, conjunctival injection, periorbital swelling ENT exam: Present: normal exam, mucous membranes moist Neck exam: Present: normal inspection. Absent: tenderness, meningismus, lymphadenopathy Respiratory exam: Present: normal lung sounds bilaterally. Absent: respiratory distress, wheezes, rales, rhonchi, stridor Cardiovascular Exam: Present: regular rate, normal rhythm, normal heart sounds. Absent: systolic murmur, diastolic murmur, rubs, gallop, clicks GI/Abdominal exam: Present: soft, normal bowel sounds. Absent: distended, tenderness, guarding, rebound, rigid Extremities exam: Present: normal inspection, full ROM, normal capillary refill. Absent: tenderness, pedal edema, joint swelling, calf tenderness Back exam: Present: normal inspection Neurological exam: Present: alert, oriented X3, CN II-XII intact Psychiatric exam: Present: normal affect, normal mood Course Vital Signs 10/16/18 09:05 Temperature 97.1 F L Pulse Rate 73 Respiratory 18 Rate Blood Pressure 160/64 O2 Sat by Pulse 100 Oximetry Medical Decision Making - Medical Decision Making Patient is a 59-year-old female presents today for evaluation for complaints of dysuria. She presents from a care facility. She is recently admitted for PEs. She states that her last hemoglobin on discharge was 7.6. Is now increased to 9.9. Denies any bloody stools or other complaints. Patient urinalysis is positive for infection. White blood cell, spell. She denies any pain to this time. Patient was given 2 g of Rocephin we'll discharge the Pat ient with antibiotics for UTI. Discussed following up with her primary care doctor and urine culture completed. - Lab Data Result diagrams: 10/16/18 09:10 10/16/18 09:10 Lab Results 10/16/18 10/16/18 10/16/18 Range/Units 09:10 09:10 09:10 WBC 7.3 (3.8-10.6) k/uL RBC 3.36 L (3.80-5.40) m/uL Hgb 9.9 L D (11.4-16.0) gm/dL Hct 31.2 L (34.0-46.0) % MCV 92.8 (80.0-100.0) fL MCH 29.5 (25.0-35.0) pg MCHC 31.8 (31.0-37.0) g/dL RDW 16.0 H (11.5-15.5) % Plt Count 242 D (150-450) k/uL Neutrophils % 71 % Lymphocytes % 18 % Monocytes % 6 % Eosinophils % 3 % Basophils % 1 % Neutrophils # 5.2 (1.3-7.7) k/uL Lymphocytes # 1.4 (1.0-4.8) k/uL Monocytes # 0.4 (0-1.0) k/uL Eosinophils # 0.2 (0-0.7) k/uL Basophils # 0.0 (0-0.2) k/uL Hypochromasia Moderate PT (9.0-12.0) sec INR (<1.2) APTT (22.0-30.0) sec Sodium 139 (137-145) mmol/L Potassium 4.5 (3.5-5.1) mmol/L Chloride 108 H (98-107) mmol/L Carbon Dioxide 28 (22-30) mmol/L Anion Gap 3 mmol/L BUN 23 H (7-17) mg/dL Creatinine 0.84 (0.52-1.04) mg/dL Est GFR (CKD-EPI)AfAm 83 (>60 ml/min/1.73 sqM) Est GFR (CKD-EPI)NonAf 72 (>60 ml/min/1.73 sqM) Glucose 95 (74-99) mg/dL Calcium 8.8 (8.4-10.2) mg/dL Total Bilirubin 2.0 H (0.2-1.3) mg/dL AST 19 (14-36) U/L ALT 21 (9-52) U/L Alkaline Phosphatase 67 (38-126) U/L Total Protein 5.5 L (6.3-8.2) g/dL Albumin 3.1 L (3.5-5.0) g/dL Urine Color Red Urine Appearance Turbid H (Clear) Urine pH 5.5 (5.0-8.0) Ur Specific [place] 1.018 (1.001-1.035) Urine Protein 2+ H (Negative) Urine Glucose (UA) Negative (Negative) Urine Ketones Negative (Negative) Urine Blood Large H (Negative) Urine Nitrite Negative (Negative) Urine Bilirubin Negative (Negative) Urine Urobilinogen <2.0 (<2.0) mg/dL Ur Leukocyte Esterase Small H (Negative) Urine RBC >182 H (0-5) /hpf Urine WBC 149 H (0-5) /hpf Urine WBC Clumps Many H (None) /hpf Ur Squamous Epith Cells 2 (0-4) /hpf Hyaline Casts 18 H (0-2) /lpf Urine Mucus Moderate H (None) /hpf 10/16/18 Range/Units 09:10 WBC (3.8-10.6) k/uL RBC (3.80-5.40) m/uL Hgb (11.4-16.0) gm/dL Hct (34.0-46.0) % MCV (80.0-100.0) fL MCH (25.0-35.0) pg MCHC (31.0-37.0) g/dL RDW (11.5-15.5) % Plt Count (150-450) k/uL Neutrophils % % Lymphocytes % % Monocytes % % Eosinophils % % Basophils % % Neutrophils # (1.3-7.7) k/uL Lymphocytes # (1.0-4.8) k/uL Monocytes # (0-1.0) k/uL Eosinophils # (0-0.7) k/uL Basophils # (0-0.2) k/uL Hypochromasia PT 10.4 (9.0-12.0) sec INR 1.0 (<1.2) APTT 25.3 (22.0-30.0) sec Sodium (137-145) mmol/L Potassium (3.5-5.1) mmol/L Chloride (98-107) mmol/L Carbon Dioxide (22-30) mmol/L Anion Gap mmol/L BUN (7-17) mg/dL Creatinine (0.52-1.04) mg/dL Est GFR (CKD-EPI)AfAm (>60 ml/min/1.73 sqM) Est GFR (CKD-EPI)NonAf (>60 ml/min/1.73 sqM) Glucose (74-99) mg/dL Calcium (8.4-10.2) mg/dL Total Bilirubin (0.2-1.3) mg/dL AST (14-36) U/L ALT (9-52) U/L Alkaline Phosphatase (38-126) U/L Total Protein (6.3-8.2) g/dL Albumin (3.5-5.0) g/dL Urine Color Urine Appearance (Clear) Urine pH (5.0-8.0) Ur Specific [place] (1.001-1.035) Urine Protein (Negative) Urine Glucose (UA) (Negative) Urine Ketones (Negative) Urine Blood (Negative) Urine Nitrite (Negative) Urine Bilirubin (Negative) Urine Urobilinogen (<2.0) mg/dL Ur Leukocyte Esterase (Negative) Urine RBC (0-5) /hpf Urine WBC (0-5) /hpf Urine WBC Clumps (None) /hpf Ur Squamous Epith Cells (0-4) /hpf Hyaline Casts (0-2) /lpf Urine Mucus (None) /hpf Disposition Clinical Impression: UTI (urinary tract infection) Disposition: HOME SELF-CARE Condition: Good Instructions (If sedation given, give patient instructions): Urinary Tract Infection in Women (ED) Additional Instructions: Patient has a take antibiotics as prescribed. Follow-up with primary care doctor. Return to the emergency department if any alarming signs or symptoms occur. Prescriptions: Cephalexin [Keflex] 500 mg PO Q8HR #21 cap Phenazopyridine HCl [Pyridium] 100 mg PO TID #9 tab Is patient prescribed a controlled substance at d/c from ED?: No Referrals: Keanu Villaseñor MD [Primary Care Provider] - 1-2 days Time of Disposition: 10:21
[2018-10-16 09:40] LABS: Basophils % (A) 1 %; Eosinophils # (A) 0.2 k/uL (0-0.7); Eosinophils % (A) 3 %; HCT 31.2 % (34.0-46.0); Hypochromasia Moderate; Lymphocytes # (A) 1.4 k/uL (1.0-4.8); Lymphocytes % (A) 18 %; MCH 29.5 pg (25.0-35.0); MCHC 31.8 g/dL (31.0-37.0); MCV 92.8 fL (80.0-100.0); Mean Platelet Volume 6.6; Monocytes # (A) 0.4 k/uL (0-1.0); Monocytes % (A) 6 %; Neutrophils # (A) 5.2 k/uL (1.3-7.7); Neutrophils % (A) 71 %; RBC 3.36 m/uL (3.80-5.40); WBC 7.3 k/uL (3.8-10.6)
[2018-10-16 09:46] LABS: Appearance,Urine Turbid (Clear); Bilirubin,Urine Negative (Negative); Blood,Urine Large (Negative); Color,Urine Red; Glucose,Urine (UA) Negative (Negative); Hyaline Casts,Urine 18 /lpf (0-2); Ketones,Urine Negative (Negative); Leukocyte Esterase,Urine Small (Negative); Mucus,Urine Moderate /hpf; Nitrite,Urine Negative (Negative); PH, Urine 5.5 (5.0-8.0); Protein,Urine 2+ (Negative); RBC,Urine >182 /hpf (0-5); Specific Gravity,Urine 1.018 (1.001-1.035); Squamous Epithelial Cell,Urine 2 /hpf (0-4); Urobilinogen,Urine <2.0 mg/dL (<2.0); WBC,Urine 149 /hpf (0-5)
[2018-10-16 09:49] LABS: Partial Thromboplastin Time 25.3 sec (22.0-30.0); Prothrombin Time 10.4 sec (9.0-12.0)
[2018-10-16 09:50] LABS: Albumin 3.1 g/dL (3.5-5.0); Calcium 8.8 mg/dL (8.4-10.2); Potassium 4.5 mmol/L (3.5-5.1); Total Protein 5.5 g/dL (6.3-8.2)
[2018-10-16] MEDS ORDERED: cefTRIAXone IN SWFI 1,000 MG/10 ML SYRINGE IVP STA ×2 (09:54→10:23)
[2018-10-16 10:00] LABS: HGB 9.9 gm/dL (11.4-16.0); Platelet Count 242 k/uL (150-450)
[2018-10-16 10:31] VITALS: BP 143/65; PULSE 70; RESP 16; TEMP 96.9
== END 2018-10-16 10:38 | disposition home or self-care (01) ==
LOC: EC 09:02
DX: N39.0 Urinary tract infection, site not specified (principal); I10 Essential (primary) hypertension; E07.9 Disorder of thyroid, unspecified; Z79.890 Hormone replacement therapy; Z79.899 Other long term (current) drug therapy; Z87.442 Personal history of urinary calculi; Z86.711 Personal history of pulmonary embolism
CPT/HCPCS: 36415; 80053; 85025; 85610; 85730; 81001; 87086; 99284; 96374; J0696

== ENCOUNTER 2018-11-03 05:50 | Emergency (ER) | payer MEDICARE ==
[2018-11-03 06:01] VITALS: RESP 18
[2018-11-03 06:42] LABS: Bacteria,Urine Rare /hpf; Hyaline Casts,Urine 58 /lpf (0-2); Mucus,Urine Occasional /hpf; Squamous Epithelial Cell,Urine 7 /hpf (0-4)
[2018-11-03 06:50] LABS: Appearance,Urine Cloudy (Clear); Color,Urine Dark Red
[2018-11-03 06:51] LABS: RBC,Urine >182 /hpf (0-5)
--- NOTE | 2018-11-03 07:33 | ED ---
Female Urogenital HPI - General Chief complaint: Urogenital Stated complaint: blood in urine Time Seen by Provider: 11/03/18 07:05 Source: family, RN notes reviewed, old records reviewed Mode of arrival: ambulatory Limitations: physical limitation - History of Present Illness Initial comments: 59-year-old female presents emergency department today for evaluation for complaints of bloody urine starting this morning at 4 AM. Patient reports that she was recently treated for bilateral PEs, and discharged from extended care facility to home. She reports that she's been off of her general to for 4 days but resumed it yesterday after getting her prescriptions filled after being discharged. At this time Patient states she has no abdominal pain or back pain. Patient states that she was treated for a recent urinary tract infection, I saw the Patient at that time on 10/16. She was had no blood in her urine and symptoms were cleared after a few days of antibiotic. Patient states that her antibiotic was switched at that time but she does not know what it was switched to. Patient states that she has no fevers or chills, or abdominal pain. - Related Data Home Medications Medication Instructions Recorded Confirmed Levothyroxine Sodium [Synthroid] 88 mcg PO DAILY 10/05/15 11/03/18 Furosemide [Lasix] 20 mg PO BID 11/03/18 11/03/18 Losartan Potassium [Cozaar] 25 mg PO DAILY 11/03/18 11/03/18 Potassium Chloride [Klor-Con 20] 20 meq PO DAILY 11/03/18 11/03/18 Rivaroxaban [Xarelto] 20 mg PO DAILY 11/03/18 11/03/18 Previous Rx's Medication Instructions Recorded Nitrofurantoin Monohyd/M-Cryst 100 mg PO Q12HR #14 cap 11/03/18 [Macrobid] Allergies Allergy/AdvReac Type Severity Reaction Status Date / Time No Known Allergies Allergy Verified 11/03/18 07:21 Review of Systems ROS Statement: Those systems with pertinent positive or pertinent negative responses have been documented in the HPI. ROS Other: All systems not noted in ROS Statement are negative. Past Medical History Past Medical History: Hypertension, Pulmonary Embolus (PE), Thyroid Disorder Additional Past Medical History / Comment(s): kidney stones History of Any Multi-Drug Resistant Organisms: None Reported Past Surgical History: Tubal Ligation Past Psychological History: No Psychological Hx Reported Smoking Status: Never smoker Past Alcohol Use History: None Reported Past Drug Use History: None Reported General Exam - General Exam Comments Initial Comments: Pleasant 67-year-old female. Alert and oriented. No significant distress. Patient is here with her . General: Well appearing, well nourished, in no distress. Oriented x 3, normal mood and affect . Ambulating without difficulty. Skin: Good turgor, no rash, unusual bruising or prominent lesions Hair: Normal texture and distribution. HEENT: Head: Normocephalic, atraumatic, no visible or palpable masses, depressions, or scaring. Eyes: Visual acuity intact, conjunctiva clear, sclera non-icteric, EOM intact, PERRL. Ears: EACs clear, TMs translucent & cone of light visualized. hearing intact. Nose: No external lesions, mucosa non-inflamed, septum and turbinates normal Mouth: Mucous membranes moist, no mucosal lesions. Teeth/Gums: No obvious caries or periodontal disease. No gingival inflammation or significant resorption. Pharynx: Mucosa non-inflamed, no tonsillar hypertrophy or exudate Neck: Supple, without lesions, bruits, or adenopathy, thyroid non-enlarged and non-tender Heart: No cardiomegaly or thrills; regular rate and rhythm, no murmur or gallop Lungs: Clear to auscultation and percussion Abdomen: Bowel sounds normal, no tenderness, organomegaly, masses, or hernia Back: Spine normal without deformity or tenderness, no CVA tenderness Extremities: No amputations or deformities, cyanosis, edema or varicosities, peripheral pulses intact Musculoskeletal: Normal gait and station. No misalignment, asymmetry, crepitation, defects, tenderness, masses, effusions, decreased range of motion, instability, atrophy or abnormal strength or tone in the head, neck, spine, ribs, pelvis or extremities. Neurologic: CN 2-12 normal. Sensation to pain, touch, and proprioception normal. DTRs normal in upper and lower extremities. No pathologic reflexes. Psychiatric: Oriented X3, intact recent and remote memory, judgment and insight, normal mood and affect. Limitations: physical limitation Course Vital Signs 11/03/18 05:57 Temperature 97.5 F L Pulse Rate 67 Respiratory 18 Rate Blood Pressure 144/72 O2 Sat by Pulse 99 Oximetry Medical Decision Making - Medical Decision Making Patient is a 59-year-old female presents emergency room today for evaluation for complaints of hematuria after resuming several toe yesterday. She was recently treated for urinary tract infection with antibiotics and reports that she had similar symptoms such as pills cleared after the antibiotic. Patient's labwork was reviewed today. Hemoglobin is improved 11.2. Kidney function stable. Urinalysis does show significant hematuria. No white blood cells or bacteria. Discusses could just related to restarting her sternal toe and thin blood. INR and PTT were stable. Patient had ultrasound of kidneys or bladder. His evidence retained stones in bilateral kidneys which are largely unchanged. There is some inflammatory thickening around the bladder wall. Discussed poss ibly cystitis. I will write the Patient a prescription for antibiotic however discussed waiting for urine culture before starting this this time. Discussion is follow-up with her urologist. Her last urine culture did not grow any significant bacteria was just normal skin mohini. Patient agrees treatment plan will comply. She has an appointment at 12:30 with her PCP. - Lab Data Result diagrams: 11/03/18 06:34 11/03/18 07:34 Lab Results 11/03/18 11/03/18 11/03/18 Range/Units 06:15 06:34 07:34 WBC 6.7 (3.8-10.6) k/uL RBC 3.73 L (3.80-5.40) m/uL Hgb 11.2 L (11.4-16.0) gm/dL Hct 35.8 (34.0-46.0) % MCV 95.9 (80.0-100.0) fL MCH 29.9 (25.0-35.0) pg MCHC 31.2 (31.0-37.0) g/dL RDW 14.5 (11.5-15.5) % Plt Count 183 (150-450) k/uL Neutrophils % 68 % Lymphocytes % 21 % Monocytes % 6 % Eosinophils % 3 % Basophils % 1 % Neutrophils # 4.6 (1.3-7.7) k/uL Lymphocytes # 1.4 (1.0-4.8) k/uL Monocytes # 0.4 (0-1.0) k/uL Eosinophils # 0.2 (0-0.7) k/uL Basophils # 0.0 (0-0.2) k/uL PT (9.0-12.0) sec INR (<1.2) APTT (22.0-30.0) sec Sodium 141 (137-145) mmol/L Potassium 4.2 (3.5-5.1) mmol/L Chloride 106 (98-107) mmol/L Carbon Dioxide 32 H (22-30) mmol/L Anion Gap 3 mmol/L BUN 23 H (7-17) mg/dL Creatinine 0.88 (0.52-1.04) mg/dL Est GFR (CKD-EPI)AfAm 79 (>60 ml/min/1.73 sqM) Est GFR (CKD-EPI)NonAf 68 (>60 ml/min/1.73 sqM) Glucose 105 H (74-99) mg/dL Calcium 8.9 (8.4-10.2) mg/dL Total Bilirubin 1.1 (0.2-1.3) mg/dL AST 21 (14-36) U/L ALT 20 (9-52) U/L Alkaline Phosphatase 59 (38-126) U/L Total Protein 5.8 L (6.3-8.2) g/dL Albumin 3.4 L (3.5-5.0) g/dL Urine Color Dark Red Urine Appearance Cloudy H (Clear) Urine RBC >182 H (0-5) /hpf Ur Squamous Epith Cells 7 H (0-4) /hpf Urine Bacteria Rare H (None) /hpf Hyaline Casts 58 H (0-2) /lpf Urine Mucus Occasional H (None) /hpf 11/03/18 Range/Units 07:34 WBC (3.8-10.6) k/uL RBC (3.80-5.40) m/uL Hgb (11.4-16.0) gm/dL Hct (34.0-46.0) % MCV (80.0-100.0) fL MCH (25.0-35.0) pg MCHC (31.0-37.0) g/dL RDW (11.5-15.5) % Plt Count (150-450) k/uL Neutrophils % % Lymphocytes % % Monocytes % % Eosinophils % % Basophils % % Neutrophils # (1.3-7.7) k/uL Lymphocytes # (1.0-4.8) k/uL Monocytes # (0-1.0) k/uL Eosinophils # (0-0.7) k/uL Basophils # (0-0.2) k/uL PT 11.1 (9.0-12.0) sec INR 1.0 (<1.2) APTT 29.9 (22.0-30.0) sec Sodium (137-145) mmol/L Potassium (3.5-5.1) mmol/L Chloride (98-107) mmol/L Carbon Dioxide (22-30) mmol/L Anion Gap mmol/L BUN (7-17) mg/dL Creatinine (0.52-1.04) mg/dL Est GFR (CKD-EPI)AfAm (>60 ml/min/1.73 sqM) Est GFR (CKD-EPI)NonAf (>60 ml/min/1.73 sqM) Glucose (74-99) mg/dL Calcium (8.4-10.2) mg/dL Total Bilirubin (0.2-1.3) mg/dL AST (14-36) U/L ALT (9-52) U/L Alkaline Phosphatase (38-126) U/L Total Protein (6.3-8.2) g/dL Albumin (3.5-5.0) g/dL Urine Color Urine Appearance (Clear) Urine RBC (0-5) /hpf Ur Squamous Epith Cells (0-4) /hpf Urine Bacteria (None) /hpf Hyaline Casts (0-2) /lpf Urine Mucus (None) /hpf - Radiology Data Radiology results: report reviewed That lateral renal colliculi, largest measuring 1.9 cm on the right, 9 mm on the left. No hydronephrosis at this time. Urinary bladder isn't completely distended but appears slightly thickened reyes could be related to explain distention or cystitis. Correlate with.. Disposition Clinical Impression: Hematuria due to cystitis Disposition: HOME SELF-CARE Condition: Good Instructions (If sedation given, give patient instructions): Hematuria (ED) Additional Instructions: Patient advised to wait to start antibiotic until seen by PCP as well as urology, and pending urine culture. Return for worsening hematuria, any symptoms of dizziness lightheadedness. Patient should have a follow-up with her primary care doctor. Return to emergency department if any alarming signs or symptoms occur. Prescriptions: Nitrofurantoin Monohyd/M-Cryst [Macrobid] 100 mg PO Q12HR #14 cap Is patient prescribed a controlled substance at d/c from ED?: No Referrals: Keanu Villaseñor MD [Primary Care Provider] - 1-2 days Time of Disposition: 08:50
[2018-11-03 08:10] LABS: Partial Thromboplastin Time 29.9 sec (22.0-30.0); Prothrombin Time 11.1 sec (9.0-12.0)
[2018-11-03 08:11] LABS: Albumin 3.4 g/dL (3.5-5.0); Calcium 8.9 mg/dL (8.4-10.2); Potassium 4.2 mmol/L (3.5-5.1); Total Bilirubin 1.1 mg/dL (0.2-1.3); Total Protein 5.8 g/dL (6.3-8.2)
--- NOTE | 2018-11-03 08:16 | US ---
EXAMINATION TYPE: US kidneys/renal and bladder DATE OF EXAM: 11/03/2018 COMPARISON: NONE CLINICAL HISTORY: Pain. Hematuria, history of kidney stones EXAM MEASUREMENTS: Right Kidney: 10.7 x 5.3 x 4.8 cm Left Kidney: 11.4 x 4.6 x 4.0 cm Right Kidney: stones, largest = 1.9cm Left Kidney: stones, largest = 0.9cm Bladder: appears wnl Bilateral Jets seen: no There is no evidence for hydronephrosis at this point in time. There is mild bilateral cortical renal thinning, sequela of medical renal disease. No masses are identified. The urinary bladder is anecho ic. Bilateral ureteral jets are not seen. IMPRESSION: 1. Bilateral renal calculi, the largest on the right measuring 1.9 cm and the largest on the left concepcion suring 9 mm. No hydronephrosis is seen at this time. 2. Urinary bladder is incompletely distended but appears to have slightly thickened reyes. This could be related to incomplete distention or cystitis. Correlate with urinalysis.
[2018-11-03 08:33] LABS: Basophils % (A) 1 %; Eosinophils # (A) 0.2 k/uL (0-0.7); Eosinophils % (A) 3 %; HCT 35.8 % (34.0-46.0); HGB 11.2 gm/dL (11.4-16.0); Lymphocytes # (A) 1.4 k/uL (1.0-4.8); Lymphocytes % (A) 21 %; MCH 29.9 pg (25.0-35.0); MCHC 31.2 g/dL (31.0-37.0); MCV 95.9 fL (80.0-100.0); Mean Platelet Volume 7.2; Monocytes # (A) 0.4 k/uL (0-1.0); Monocytes % (A) 6 %; Neutrophils # (A) 4.6 k/uL (1.3-7.7); Neutrophils % (A) 68 %; Platelet Count 183 k/uL (150-450); RBC 3.73 m/uL (3.80-5.40); RDW 14.5 % (11.5-15.5); WBC 6.7 k/uL (3.8-10.6)
[2018-11-03 09:02] VITALS: BP 136/54; PULSE 64; TEMP 98.1
== END 2018-11-03 09:02 | disposition home or self-care (01) ==
LOC: EC 05:50
DX: N30.91 Cystitis, unspecified with hematuria (principal); N20.0 Calculus of kidney; I10 Essential (primary) hypertension; E07.9 Disorder of thyroid, unspecified; Z87.440 Personal history of urinary (tract) infections; Z79.01 Long term (current) use of anticoagulants; Z79.890 Hormone replacement therapy; Z79.899 Other long term (current) drug therapy; Z86.711 Personal history of pulmonary embolism; Z98.51 Tubal ligation status
CPT/HCPCS: 36415; 76770; 80053; 81001; 85025; 85610; 85730; 87086; 99284

== ENCOUNTER 2019-01-12 19:06 | Emergency (ER) | payer MEDICARE ==
[2019-01-12 19:32] VITALS: TEMP 98.2
[2019-01-12] MEDS ORDERED: SODIUM CHLORIDE 0.9% 1,000 ML IV STA (19:59)
[2019-01-12] MEDS ORDERED: HYDROmorphone 0.5 MG/0.5 ML SYRINGE IVP STA (19:59)
[2019-01-12] MEDS ORDERED: KETOROLAC 30 MG/ML 1 ML VIAL IVP STA (19:59)
[2019-01-12] MEDS ORDERED: ONDANSETRON 4 MG/2 ML VIAL IVP STA (19:59)
[2019-01-12 20:30] LABS: Basophils % (A) 0 %; Eosinophils # (A) 0.2 k/uL (0-0.7); Eosinophils % (A) 1 %; HGB 10.9 gm/dL (11.4-16.0); Lymphocytes # (A) 1.3 k/uL (1.0-4.8); Lymphocytes % (A) 11 %; MCH 28.7 pg (25.0-35.0); MCHC 32.1 g/dL (31.0-37.0); MCV 89.5 fL (80.0-100.0); Mean Platelet Volume 8.1; Monocytes # (A) 0.7 k/uL (0-1.0); Monocytes % (A) 6 %; Neutrophils # (A) 9.5 k/uL (1.3-7.7); Neutrophils % (A) 81 %; Platelet Count 154 k/uL (150-450); RDW 14.1 % (11.5-15.5); WBC 11.8 k/uL (3.8-10.6)
[2019-01-12 20:31] LABS: Albumin 3.8 g/dL (3.5-5.0); Calcium 9.1 mg/dL (8.4-10.2); Total Bilirubin 1.3 mg/dL (0.2-1.3); Total Protein 6.3 g/dL (6.3-8.2)
--- NOTE | 2019-01-12 20:34 | ED ---
Abdominal Pain HPI - General Chief Complaint: Abdominal Pain Stated Complaint: Kidney stone Time Seen by Provider: 01/12/19 19:32 Source: patient, family Mode of arrival: wheelchair Limitations: no limitations - History of Present Illness Initial Comments: 68-year-old female patient presents to the emergency department today for evaluation of left sided abdominal pain. Patient states this started on Thursday and has been persistently getting worse. Patient states she has now developed nausea and has been having dry heaves. States she's had very little to eat over the last couple of days. Patient states she is having hematuria but has been since she started taking Xarelto for PE in September. Patient states she does have history of kidney stones and this feels similar. She denies any constipation or diarrhea with this. Denies any fever or chills. Denies any dysuria, urinary urgency, urinary frequency. Patient denies any recent rash, shortness breath, chest pain, back pain, numbness, tingling, dizziness, weakness, headache, visual changes, or any other complaints. - Related Data Home Medications Medication Instructions Recorded Confirmed Levothyroxine Sodium [Synthroid] 88 mcg PO DAILY 10/05/15 01/12/19 Losartan Potassium [Cozaar] 25 mg PO DAILY 11/03/18 01/12/19 Rivaroxaban [Xarelto] 20 mg PO DAILY 11/03/18 01/12/19 Previous Rx's Medication Instructions Recorded Hydrocodone/Acetaminophen [[place] 1 tab PO Q6HR PRN #12 tab 01/12/19 5-325] Ondansetron [Zofran ODT] 4 mg PO Q8HR PRN #10 tab 01/12/19 Tamsulosin HCl [Flomax] 0.4 mg PO DAILY #7 cap 01/12/19 Allergies Allergy/AdvReac Type Severity Reaction Status Date / Time No Known Allergies Allergy Verified 01/12/19 20:27 Review of Systems ROS Statement: Those systems with pertinent positive or pertinent negative responses have been documented in the HPI. ROS Other: All systems not noted in ROS Statement are negative. Past Medical History Past Medical History: Deep Vein Thrombosis (DVT), Hypertension, Pulmonary Embolus (PE), Thyroid Disorder Additional Past Medical History / Comment(s): kidney stones History of Any Multi-Drug Resistant Organisms: None Reported Past Surgical History: Tubal Ligation Past Psychological History: No Psychological Hx Reported Smoking Status: Never smoker Past Alcohol Use History: None Reported Past Drug Use History: None Reported General Exam Limitations: no limitations General appearance: alert, in no apparent distress, other (This is a well- developed, well-nourished adult female patient in no acute distress. Vital signs upon presentation are temperature 98.2F, pulse 55, respirations 18, blood pressure 155/83, pulse ox 96% on room air.) Eye exam: Present: normal appearance, PERRL, EOMI. Absent: scleral icterus, conjunctival injection, periorbital swelling ENT exam: Present: normal exam, normal oropharynx, mucous membranes moist Respiratory exam: Present: normal lung sounds bilaterally. Absent: respiratory distress, wheezes, rales, rhonchi, stridor Cardiovascular Exam: Present: regular rate, normal rhythm, normal heart sounds. Absent: systolic murmur, diastolic murmur, rubs, gallop, clicks GI/Abdominal exam: Present: soft, tenderness (Left midabdomen), normal bowel sounds. Absent: distended, guarding, rebound, rigid Back exam: Present: normal inspection. Absent: CVA tenderness (R), CVA tenderness (L) Neurological exam: Present: alert, oriented X3, CN II-XII intact Psychiatric exam: Present: normal affect, normal mood Skin exam: Present: warm, dry, intact, normal color. Absent: rash Course Vital Signs 01/12/19 01/12/19 19:30 22:02 Temperature 98.2 F Pulse Rate 55 L 50 L Respiratory 18 16 Rate Blood Pressure 155/83 111/46 O2 Sat by Pulse 96 94 L Oximetry Medical Decision Making - Medical Decision Making 68-year-old female patient percents into the emergency department today for evaluation of left flank pain and dry heaves. Patient has history of kidney stones and states symptoms are similar to her previous stones. Labs reviewed and did reveal white blood cell count 11.8, most likely reactive from vomiting. BUN 33, creatinine 1.45 which is consistent with her history of chronic renal f ailure. Urinalysis shows a turbid appearance with 2+ protein, large blood, moderate leukocyte esterase, greater than 182 red blood cells, greater than 182 white blood cells. Patient states take his relative and does have hematuria chronically. X-ray of the abdomen was unremarkable. Patient symptoms and findings are consistent with kidney stone. She'll be discharged with Flomax, pain medication, nausea medication. Urine was sent for culture. She is instructed to follow-up with her urologist for recheck as soon as possible. States she is going to be seeing a new urologist out of town and does have an appointment with them. She is instructed to follow up with her primary care physician for recheck in 1-2 days. Return parameters were discussed in detail. She verbalizes understanding and agrees with this plan. - Lab Data Result diagrams: 01/12/19 20:05 01/12/19 20:05 Lab Results 01/12/19 01/12/19 01/12/19 Range/Units 20:05 20:05 21:57 WBC 11.8 H (3.8-10.6) k/uL RBC 3.80 (3.80-5.40) m/uL Hgb 10.9 L (11.4-16.0) gm/dL Hct 34.0 (34.0-46.0) % MCV 89.5 (80.0-100.0) fL MCH 28.7 (25.0-35.0) pg MCHC 32.1 (31.0-37.0) g/dL RDW 14.1 (11.5-15.5) % Plt Count 154 (150-450) k/uL Neutrophils % 81 % Lymphocytes % 11 % Monocytes % 6 % Eosinophils % 1 % Basophils % 0 % Neutrophils # 9.5 H (1.3-7.7) k/uL Lymphocytes # 1.3 (1.0-4.8) k/uL Monocytes # 0.7 (0-1.0) k/uL Eosinophils # 0.2 (0-0.7) k/uL Basophils # 0.0 (0-0.2) k/uL Sodium 142 (137-145) mmol/L Potassium 4.0 (3.5-5.1) mmol/L Chloride 106 (98-107) mmol/L Carbon Dioxide 29 (22-30) mmol/L Anion Gap 7 mmol/L BUN 33 H (7-17) mg/dL Creatinine 1.45 H (0.52-1.04) mg/dL Est GFR (CKD-EPI)AfAm 42 (>60 ml/min/1.73 sqM) Est GFR (CKD-EPI)NonAf 37 (>60 ml/min/1.73 sqM) Glucose 113 H (74-99) mg/dL Calcium 9.1 (8.4-10.2) mg/dL Total Bilirubin 1.3 (0.2-1.3) mg/dL AST 19 (14-36) U/L ALT 19 (9-52) U/L Alkaline Phosphatase 67 (38-126) U/L Total Protein 6.3 (6.3-8.2) g/dL Albumin 3.8 (3.5-5.0) g/dL Amylase 33 (30-110) U/L Lipase 26 (23-300) U/L Urine Color Dark Brown Urine Appearance Turbid H (Clear) Urine pH 5.5 (5.0-8.0) Ur Specific [place] 1.022 (1.001-1.035) Urine Protein 2+ H (Negative) Urine Glucose (UA) Negative (Negative) Urine Ketones Negative (Negative) Urine Blood Large H (Negative) Urine Nitrite Negative (Negative) Urine Bilirubin Negative (Negative) Urine Urobilinogen <2.0 (<2.0) mg/dL Ur Leukocyte Esterase Moderate H (Negative) Urine RBC >182 H (0-5) /hpf Urine WBC >182 H (0-5) /hpf - Radiology Data Radiology results: report reviewed, image reviewed One view x-ray of the abdomen is obtained. Report was reviewed in its entirety. Impression by Dr. Pretty shows nonspecific bowel gas pattern. Disposition Clinical Impression: Kidney stone on left side Disposition: HOME SELF-CARE Condition: Good Instructions (If sedation given, give patient instructions): Kidney Stones (ED), Abdominal Pain (ED) Additional Instructions: Increase fluids. Take medications as directed. Follow-up with your primary care physician for recheck in 1-2 days. Return to the emergency department imme diately for any new, worsening, or concerning symptoms. Prescriptions: Tamsulosin HCl [Flomax] 0.4 mg PO DAILY #7 cap Hydrocodone/Acetaminophen [[place] 5-325] 1 tab PO Q6HR PRN #12 tab PRN Reason: Pain Ondansetron [Zofran ODT] 4 mg PO Q8HR PRN #10 tab PRN Reason: Nausea Is patient prescribed a controlled substance at d/c from ED?: Yes When asked, does pt state using other controlled substances?: Yes If prescribed controlled substance>3 days was MAPS reviewed?: Prescribed <3 Days If opioid is for acute pain is fill amount 7 days or less?: No If Rx opioid, was Start Talking consent form obtained?: No Referrals: Keanu Villaseñor MD [Primary Care Provider] - 1-2 days Time of Disposition: 22:39
--- NOTE | 2019-01-12 21:19 | XR ---
EXAM: XR Abdomen, 1 View CLINICAL HISTORY: abdominal pain TECHNIQUE: Frontal supine view of the abdomen/pelvis. COMPARISON: 03/13/2017 FINDINGS: Intraperitoneal space: No pneumatosis or pneumoperitoneum. Gastrointestinal tract: Nonspecific bowel gas pattern. Gas and stool are seen throughout the nondilated colon. Bones/joints: No acute fracture or malalignment. IMPRESSION: Nonspecific bowel gas pattern.
[2019-01-12 22:03] VITALS: BP 111/46; PULSE 50; RESP 16
[2019-01-12 22:20] LABS: Appearance,Urine Turbid (Clear); Bilirubin,Urine Negative (Negative); Blood,Urine Large (Negative); Color,Urine Dark Brown; Glucose,Urine (UA) Negative (Negative); Ketones,Urine Negative (Negative); Leukocyte Esterase,Urine Moderate (Negative); Nitrite,Urine Negative (Negative); PH, Urine 5.5 (5.0-8.0); Protein,Urine 2+ (Negative); RBC,Urine >182 /hpf (0-5); Specific Gravity,Urine 1.022 (1.001-1.035); Urobilinogen,Urine <2.0 mg/dL (<2.0); WBC,Urine >182 /hpf (0-5)
[2019-01-12] MEDS ORDERED: TAMSULOSIN 0.4 MG CAP.ER.24H PO STA (22:35)
[2019-01-12] MEDS ORDERED: ONDANSETRON 4 MG ODT STARTER PACK 2 TAB BTL PO STA (22:39)
[2019-01-12] MEDS ORDERED: ACET/COD 300 MG/30 MG STARTER PACK 6 TAB BTL PO STA (22:39)
== END 2019-01-12 23:04 | disposition home or self-care (01) ==
LOC: EC 19:06
DX: N20.0 Calculus of kidney (principal); I10 Essential (primary) hypertension; E07.9 Disorder of thyroid, unspecified; Z79.01 Long term (current) use of anticoagulants; Z79.890 Hormone replacement therapy; Z79.899 Other long term (current) drug therapy; Z86.711 Personal history of pulmonary embolism; Z86.718 Personal history of other venous thrombosis and embolism; Z98.51 Tubal ligation status
CPT/HCPCS: 36415; 80053; 82150; 83690; 85025; 81001; 74018; 99284; 96374; 96375 ×2; 96361; J2405; J1885; S0119; J1170; 87086

== ENCOUNTER → 2019-03-07 | Outpatient (CLI) | payer MEDICARE ==
--- NOTE | 2019-03-07 14:27 | CT ---
EXAMINATION TYPE: CT abdomen pelvis wo con DATE OF EXAM: 03/07/2019 COMPARISON: 03/13/2017 INDICATION: Hematuria DLP: 1127 mGycm, Automated exposure control for dose reduction was used. CONTRAST: 0 mL of Isovue 300. Study performed without Oral Contrast TECHNIQUE: Axial images were obtained from above the diaphragm to the pubic rami in the axial plane a t 5 mm thick sections. Reconstructed images are reviewed on the computer in the coronal plane. FINDINGS: Limited CT sections are obtained the lung bases. The lung bases are clear. CT ABDOMEN: Liver: Normal Spleen: Normal Pancreas: Normal Adrenal glands: The adrenal glands are normal. Gallbladder: Normal Kidneys: Multiple bilateral renal stones are present. Large calcifications at the superior midportion right kidney measuring 0.9 cm. Large renal stone within the right renal pelvis measures 1.7 x 1.0 cm . Punctate renal stones in the mid to inferior pole right kidney measuring 0.5 cm. There is a large r enal stone within the left renal pelvis measuring 0.9 x 1.6 cm. Additional mid renal calcifications m easure 0.4 and 0.5 cm. Additional smaller calcifications are within the left kidney. No hydronephrosi s is evident. No hydroureter is evident. Aorta: Vascular calcification is within the aorta. Inferior vena cava: Normal. CT PELVIS: Loops of bowel within the abdomen and pelvis are normal. Bowel loops have limited evaluation lack ing oral contrast. Appendix: Not visualized. No suspicious tubular structures or inflammatory changes are evident. Urinary bladder: Normal. Genitourinary structures: Uterus and adnexa appear unremarkable. No free fluid is in the pelvis. Osseous structures: No suspicious lytic or sclerotic lesions. IMPRESSIONS: 1. Multiple bilateral nonobstructing renal stones. The largest calcifications are within the bilater al renal pelves with additional smaller nonobstructing stones bilaterally.
== END | disposition home or self-care (01) ==
LOC: RADCTMAIN 11:30
PROVIDERS: ATTEND Urology
DX: N20.0 Calculus of kidney (principal)
CPT/HCPCS: 74176

== ENCOUNTER → 2020-01-04 | Outpatient (CLI) | payer MEDICARE ==
--- NOTE | 2020-01-04 13:56 | CT ---
EXAMINATION TYPE: CT abdomen pelvis wo con DATE OF EXAM: 01/04/2020 COMPARISON: Prior CT 03/07/2019 HISTORY: Renal stone CT DLP: 2015.8 mGycm Automated exposure control for dose reduction was used. TECHNIQUE: Helical acquisition of images from the lung bases through the pelvis. FINDINGS: Lack of intravenous contrast could compromise sensitivity of the exam. Umbilical hernia con tains fat. LUNG BASES: No significant abnormality is appreciated. AORTA: No significant abnormality is appreciated. LIVER/GB: No significant abnormality is appreciated. PANCREAS: No significant abnormality is seen. SPLEEN: No significant abnormality is seen. ADRENALS: No significant abnormality is seen. KIDNEYS: Bilateral renal calculi are present. At the lower pole the left kidney there are 2 calcifica tions present which measure approximately 3 and 5 mm respectively. In the renal pelvis on the left th ere is a calcification measuring [id number] mm in greatest dimension. Upper pole left kidney fernando ws a calcification measuring 2 cm. Right-sided calculi are present within the renal pelvis, 3 calcifi cations are present, largest measuring 15 mm. The lower pole there is a calcification measuring 6 to 7 mm. The midpole shows a nonobstructive calculus measuring 6 mm. There is no hydronephrosis bilatera lly. REPRODUCTIVE ORGANS: No significant abnormality is seen. URINARY BLADDER: No significant abnormality is seen. BOWEL: No significant abnormality is seen. FREE AIR: No Free Air is visible. ASCITES: None visible. PELVIC ADENOPATHY: None visualized. RETROPERITONEAL ADENOPATHY: No Retroperitoneal Adenopathy visible. OSSEOUS STRUCTURES: There is a spinal curvature present. IMPRESSION: BILATERAL NEPHROLITHIASIS. NONCONTRAST EXAM.
[2020-01-04 14:14] LABS: Calcium 8.8 mg/dL (8.4-10.2); Potassium 4.4 mmol/L (3.5-5.1); Uric Acid 6.6 mg/dL (3.7-7.4)
== END | disposition home or self-care (01) ==
LOC: RADCTMAIN 11:04
PROVIDERS: ATTEND Urology
DX: N20.0 Calculus of kidney (principal)
CPT/HCPCS: 74176; 80048; 84550

== ENCOUNTER → 2020-01-24 | Outpatient (CLI) | payer MEDICARE ==
--- NOTE | 2020-01-24 16:20 | XR ---
EXAMINATION TYPE: XR lumbosacral spine min 4V DATE OF EXAM: 01/24/2020 CLINICAL HISTORY: Idiopathic neuropathy. Lower back pain. TECHNIQUE: Frontal, lateral, and oblique images of the lumbar spine are obtained. COMPARISON: CT abdomen pelvis 01/04/2020 FINDINGS: There are 5 lumbar type vertebral bodies identified. The lumbar spine shows satisfactory alignment without evidence of acute fracture or dislocation. Vertebral body heights are within normal limits. Mild disc space narrowing with marked endplate osteophytosis of L1-L2. Mild endplate spurrin g is seen diffusely. Facet arthropathy bilaterally. No evidence of spondylolysis or spondylolisthesis . Calcifications overlying the bilateral renal shadows. IMPRESSION: 1. No acute fracture or dislocation is seen in the lumbar spine. 2. Degenerative disc disease and facet arthropathy.
== END | disposition home or self-care (01) ==
LOC: RADXRMAIN 13:46
PROVIDERS: ATTEND Family Medicine
DX: M51.37 Other intervertebral disc degeneration, lumbosacral region (principal); M47.817 Spondylosis without myelopathy or radiculopathy, lumbosacral region
CPT/HCPCS: 72110

== ENCOUNTER → 2020-03-02 | Outpatient (CLI) | payer MEDICARE ==
--- NOTE | 2020-03-07 12:56 | P.ARTDOP ---
Arterial Doppler LOWER EXTREMITY ARTERIAL DOPPLER: DATE OF SERVICE: 03/02/2020 Reason for study: Bilateral leg weakness. Doppler waveforms: Multiphasic bilaterally throughout. Pulse volume recording: []. Pressure gradients: None. Ankle-brachial indices: Greater than 1 bilaterally. Toe brachial indices: 0.69 on the right, 0.72 on the left Impression: Normal study.
== END | disposition home or self-care (01) ==
LOC: RADUSWWP 12:46
PROVIDERS: ATTEND Nurse Practitioner Adult Health
DX: M62.81 Muscle weakness (generalized) (principal)
CPT/HCPCS: 93922

== ENCOUNTER 2020-03-31 11:34 | Observation (INO) | payer MEDICARE ==
--- NOTE | 2020-03-31 12:11 | ED ---
General Adult HPI - General Chief complaint: Abdominal Pain Stated complaint: kidney stones Time Seen by Provider: 03/31/20 12:09 Source: patient Mode of arrival: wheelchair Limitations: no limitations - Related Data Home Medications Medication Instructions Recorded Confirmed Levothyroxine Sodium [Synthroid] 88 mcg PO DAILY 10/05/15 01/12/19 Losartan Potassium [Cozaar] 25 mg PO DAILY 11/03/18 01/12/19 Rivaroxaban [Xarelto] 20 mg PO DAILY 11/03/18 01/12/19 Previous Rx's Medication Instructions Recorded Hydrocodone/Acetaminophen [[place] 1 tab PO Q6HR PRN #12 tab 01/12/19 5-325] Ondansetron [Zofran ODT] 4 mg PO Q8HR PRN #10 tab 01/12/19 Tamsulosin HCl [Flomax] 0.4 mg PO DAILY #7 cap 01/12/19 Allergies Allergy/AdvReac Type Severity Reaction Status Date / Time No Known Allergies Allergy Verified 03/31/20 11:42 Review of Systems ROS Statement: Those systems with pertinent positive or pertinent negative responses have been documented in the HPI. ROS Other: All systems not noted in ROS Statement are negative. Past Medical History Past Medical History: Deep Vein Thrombosis (DVT), Hypertension, Pulmonary Embolus (PE), Thyroid Disorder Additional Past Medical History / Comment(s): kidney stones History of Any Multi-Drug Resistant Organisms: None Reported Past Surgical History: Tubal Ligation Past Psychological History: No Psychological Hx Reported Smoking Status: Never smoker Past Alcohol Use History: None Reported Past Drug Use History: None Reported General Exam Limitations: no limitations Course Vital Signs 03/31/20 11:38 Temperature 98.3 F Pulse Rate 50 L Respiratory 18 Rate Blood Pressure 143/75 O2 Sat by Pulse 99 Oximetry Disposition Condition: Stable When asked, does pt state using other controlled substances?: No Referrals: Keanu Villaseñor MD [Primary Care Provider] - 1-2 days
[2020-03-31] MEDS ORDERED: HYDROmorphone 0.5 MG/0.5 ML SYRINGE IVP STA (12:15)
[2020-03-31] MEDS ORDERED: SODIUM CHLORIDE 0.9% 500 ML 500 ML IV ONE (12:16)
--- NOTE | 2020-03-31 12:22 | ED ---
Abdominal Pain HPI <Osvaldo Kamara - Last Filed: 03/31/20 14:02> - General Source: patient Mode of arrival: wheelchair Limitations: no limitations <Delphine Morgan - Last Filed: 03/31/20 15:23> - General Chief Complaint: Abdominal Pain Stated Complaint: kidney stones Time Seen by Provider: 03/31/20 12:09 - History of Present Illness Initial Comments: 69-year-old feel presents today for chief complaint of right lower abdominal pain. Patient states that she has developed right lower abdominal pain that began this morning. She states feels similar to when she's had kidney stones the past sharp in nature increasing and decreasing in intensity she states in intensity increased this morning she began dry heaving. Patient states after dry heaving she had some chest discomfort/pressure. Denies experiencing this before the episode of dry heaving. Denies leg swelling, hemoptysis, emesis. She states she is compliant with her Xarelto. Denies urinary symptoms, denies fevers, or URI symptoms. Patient states she has blood in her urine which is no unusual for her. Patient denies additional complaints. Upon arrival patient appears well nontoxic in no acute distress. (Delphine Morgan) - Related Data Home Medications Medication Instructions Recorded Confirmed Levothyroxine Sodium [Synthroid] 88 mcg PO DAILY 10/05/15 03/31/20 Losartan Potassium [Cozaar] 25 mg PO DAILY 11/03/18 03/31/20 Rivaroxaban [Xarelto] 20 mg PO DAILY 11/03/18 03/31/20 Cyanocobalamin (Vitamin B-12) 1,000 mcg PO DAILY 03/31/20 03/31/20 [Vitamin B-12] Ferrous Sulfate [Feosol] 325 mg PO BID 03/31/20 03/31/20 Allergies Allergy/AdvReac Type Severity Reaction Status Date / Time No Known Allergies Allergy Verified 03/31/20 14:17 Review of Systems ROS Other: All systems not noted in ROS Statement are negative. <Osvaldo Kamara - Last Filed: 03/31/20 14:02> ROS Other: All systems not noted in ROS Statement are negative. <Delphine Morgan - Last Filed: 03/31/20 15:23> ROS Statement: Those systems with pertinent positive or pertinent negative responses have been documented in the HPI. Past Medical History Past Medical History: Deep Vein Thrombosis (DVT), Hypertension, Pulmonary Embolus (PE), Thyroid Disorder Additional Past Medical History / Comment(s): kidney stones History of Any Multi-Drug Resistant Organisms: None Reported Past Surgical History: Tubal Ligation Past Psychological History: No Psychological Hx Reported Smoking Status: Never smoker Past Alcohol Use History: None Reported Past Drug Use History: None Reported <Delphine Morgan - Last Filed: 03/31/20 15:23> General Exam Limitations: no limitations <Delphine Morgan - Last Filed: 03/31/20 15:23> - General Exam Comments Initial Comments: General: The patient is awake and alert, in no distress Eye: +3 mm pupils are equal, round and reactive to light, extra-ocular movements are intact. No nystagmus. There is normal conjunctiva bilaterally. No signs of icterus. Ears, nose, mouth and throat: There are moist mucous membranes and no oral lesions. Neck: The neck is supple, there is no tenderness or JVD. Cardiovascular: There is a regular rate and rhythm. No murmur, rub or gallop is appreciated. Respiratory: Lungs are clear to auscultation, respirations are non-labored, breath sounds are equal. No wheezes, stridor, rales, or rhonchi. Gastrointestinal: Soft, non-distended, tender to palpation of the RLQ aspect of the abdomen, abdomen without masses or organomegaly noted. There is no rebound or guarding present. Musculoskeletal: Normal ROM, no tenderness. Strength 5/5. Sensation intact. Radial and DP pulses equal bilaterally 2+. Neurological: A&O x 3. CN II-XII intact grossly, There are no obvious motor or sensory deficits. Coordination appears grossly intact. Speech is normal. Skin: Skin is warm and dry and no rashes or lesions are noted. No Calf pain or LE edema. Psychiatric: Cooperative, appropriate mood & affect, normal judgment. (Delphine Morgan) Course <Da Kamaraul - Last Filed: 03/31/20 14:02> <Delphine Morgan - Last Filed: 03/31/20 15:23> Vital Signs 03/31/20 03/31/20 11:38 14:00 Temperature 98.3 F Pulse Rate 50 L 52 L Respiratory 18 18 Rate Blood Pressure 143/75 127/60 O2 Sat by Pulse 99 96 Oximetry - Reevaluation(s) Reevaluation #1: 03/31/20 13:56 Patient is currently chest pain-free. Case, EKG findings (new LBBB) and lab results were discussed with Dr. Joseph (cardiology). He recommends following the patient's serial troponin levels. He does not feel that the patient needs to be anticoagulated or taken to the bed laborer at this time. He has no further recommendations at this time. (Osvaldo Kamara) Sleeping, woke pt patient up asked about pain states chest pain in almost all the way gone 1/10 and right lower quadrant abdominal pain is 3/10. Patient troponin was elevated, and this was discussed. Aspirin/nitro initiatd. Attending reviewed EKG-is consulting cardiology. 03/31/20 13:51 (Delphine Morgan) Medical Decision Making - Lab Data Result diagrams: 03/31/20 12:50 03/31/20 12:50 <Osvaldo Kamara - Last Filed: 03/31/20 14:02> - Lab Data Result diagrams: 03/31/20 12:50 03/31/20 12:50 <Delphine Morgan - Last Filed: 03/31/20 15:23> - Medical Decision Making Obstructing stone right sided consistent with symptoms pt presented with. Patient states she had a bout of chest pain only after dry heaving. Patient states it has been improving. Denies significant SOB. Admits to hematuria, on xarelto. Patient troponin +. With significant change in baseline GFR, now down to 38. Stone on CT. Patient EKG LBBB (new). Consulted cardiology- to hold anticoaguliation as patient on xarelto and do serial troponins. No further recommendations. Pain nearly gone on reevaluation. Patient appears well. Patient case discussed with Dr. Zhang who accepted admission. Patient placed on rocephin given bacteria with obstructing stone/leukocytosis. Patient agreeable to admission. Asad agreeable to care plan. (Delphine Morgan) - Lab Data Lab Results 03/31/20 03/31/20 03/31/20 Range/Units 12:50 12:50 12:50 WBC 15.6 H (3.8-10.6) k/uL RBC 4.53 (3.80-5.40) m/uL Hgb 13.3 (11.4-16.0) gm/dL Hct 43.9 (34.0-46.0) % MCV 97.0 (80.0-100.0) fL MCH 29.3 (25.0-35.0) pg MCHC 30.2 L (31.0-37.0) g/dL RDW 13.6 (11.5-15.5) % Plt Count 155 (150-450) k/uL Neutrophils % 86 % Lymphocytes % 7 % Monocytes % 5 % Eosinophils % 2 % Basophils % 0 % Neutrophils # 13.4 H (1.3-7.7) k/uL Lymphocytes # 1.1 (1.0-4.8) k/uL Monocytes # 0.8 (0-1.0) k/uL Eosinophils # 0.2 (0-0.7) k/uL Basophils # 0.0 (0-0.2) k/uL PT 10.3 (9.0-12.0) sec INR 1.0 (<1.2) APTT 27.7 (22.0-30.0) sec Sodium (137-145) mmol/L Potassium (3.5-5.1) mmol/L Chloride (98-107) mmol/L Carbon Dioxide (22-30) mmol/L Anion Gap mmol/L BUN (7-17) mg/dL Creatinine (0.52-1.04) mg/dL Est GFR (CKD-EPI)AfAm (>60 ml/min/1.73 sqM) Est GFR (CKD-EPI)NonAf (>60 ml/min/1.73 sqM) Glucose (74-99) mg/dL Plasma Lactic Acid Luke (0.7-2.0) mmol/L Calcium (8.4-10.2) mg/dL Total Bilirubin (0.2-1.3) mg/dL AST (14-36) U/L ALT (4-34) U/L Alkaline Phosphatase (38-126) U/L Troponin I (0.000-0.034) ng/mL Total Protein (6.3-8.2) g/dL Albumin (3.5-5.0) g/dL Amylase (30-110) U/L Lipase (23-300) U/L Urine Color Red Urine Appearance Bloody H (Clear) Urine RBC >182 H (0-5) /hpf Urine WBC 52 H (0-5) /hpf Ur Squamous Epith Cells 10 H (0-4) /hpf 03/31/20 03/31/20 03/31/20 Range/Units 12:50 12:50 12:50 WBC (3.8-10.6) k/uL RBC (3.80-5.40) m/uL Hgb (11.4-16.0) gm/dL Hct (34.0-46.0) % MCV (80.0-100.0) fL MCH (25.0-35.0) pg MCHC (31.0-37.0) g/dL RDW (11.5-15.5) % Plt Count (150-450) k/uL Neutrophils % % Lymphocytes % % Monocytes % % Eosinophils % % Basophils % % Neutrophils # (1.3-7.7) k/uL Lymphocytes # (1.0-4.8) k/uL Monocytes # (0-1.0) k/uL Eosinophils # (0-0.7) k/uL Basophils # (0-0.2) k/uL PT (9.0-12.0) sec INR (<1.2) APTT (22.0-30.0) sec Sodium 139 (137-145) mmol/L Potassium 4.5 (3.5-5.1) mmol/L Chloride 104 (98-107) mmol/L Carbon Dioxide 31 H (22-30) mmol/L Anion Gap 4 mmol/L BUN 33 H (7-17) mg/dL Creatinine 1.40 H (0.52-1.04) mg/dL Est GFR (CKD-EPI)AfAm 44 (>60 ml/min/1.73 sqM) Est GFR (CKD-EPI)NonAf 38 (>60 ml/min/1.73 sqM) Glucose 141 H (74-99) mg/dL Plasma Lactic Acid Luke 1.0 (0.7-2.0) mmol/L Calcium 8.8 (8.4-10.2) mg/dL Total Bilirubin 1.4 H (0.2-1.3) mg/dL AST 21 (14-36) U/L ALT 15 (4-34) U/L Alkaline Phosphatase 71 (38-126) U/L Troponin I 0.678 H* (0.000-0.034) ng/mL Total Protein 6.5 (6.3-8.2) g/dL Albumin 3.7 (3.5-5.0) g/dL Amylase 56 (30-110) U/L Lipase 96 (23-300) U/L Urine Color Urine Appearance (Clear) Urine RBC (0-5) /hpf Urine WBC (0-5) /hpf Ur Squamous Epith Cells (0-4) /hpf Disposition <Osvaldo Kamara - Last Filed: 03/31/20 14:02> Time of Disposition: 15:22 Decision Date: 03/31/20 Decision Time: 15:22 <Delphine Morgan - Last Filed: 03/31/20 15:23> Clinical Impression: YESSENIA (acute kidney injury), Urolithiasis, Hematuria, RLQ abdominal pain Disposition: ADMITTED IP TO THIS [facility] Condition: Serious
[2020-03-31] MEDS ORDERED: ONDANSETRON 4 MG/2 ML VIAL IVP STA (12:48)
[2020-03-31 13:03] LABS: Basophils % (A) 0 %; Eosinophils # (A) 0.2 k/uL (0-0.7); Eosinophils % (A) 2 %; HCT 43.9 % (34.0-46.0); HGB 13.3 gm/dL (11.4-16.0); Lymphocytes # (A) 1.1 k/uL (1.0-4.8); Lymphocytes % (A) 7 %; MCH 29.3 pg (25.0-35.0); MCHC 30.2 g/dL (31.0-37.0); Mean Platelet Volume 7.9; Monocytes # (A) 0.8 k/uL (0-1.0); Monocytes % (A) 5 %; Neutrophils # (A) 13.4 k/uL (1.3-7.7); Neutrophils % (A) 86 %; Platelet Count 155 k/uL (150-450); RBC 4.53 m/uL (3.80-5.40); RDW 13.6 % (11.5-15.5); WBC 15.6 k/uL (3.8-10.6)
[2020-03-31 13:09] LABS: Color,Urine Red; RBC,Urine >182 /hpf (0-5); Squamous Epithelial Cell,Urine 10 /hpf (0-4); WBC,Urine 52 /hpf (0-5)
[2020-03-31 13:10] LABS: Appearance,Urine Bloody (Clear)
[2020-03-31 13:11] LABS: Albumin 3.7 g/dL (3.5-5.0); Calcium 8.8 mg/dL (8.4-10.2); Partial Thromboplastin Time 27.7 sec (22.0-30.0); Potassium 4.5 mmol/L (3.5-5.1); Prothrombin Time 10.3 sec (9.0-12.0); Total Bilirubin 1.4 mg/dL (0.2-1.3); Total Protein 6.5 g/dL (6.3-8.2)
[2020-03-31] MEDS ORDERED: SODIUM CHLORIDE 0.9% 1,000 ML IV SCH (13:30)
--- NOTE | 2020-03-31 13:40 | XR ---
EXAMINATION TYPE: XR chest 2V DATE OF EXAM: 03/31/2020 CLINICAL HISTORY: pain after vomiting. TECHNIQUE: Frontal and lateral view of the chest. COMPARISON: 10/01/2018 chest radiograph FINDINGS: The cardiomediastinal silhouette is within normal limits for size. Redemonstrated prominen t pulmonary arteries, which may represent pulmonary arterial hypertension. There is no focal air spac e opacity, pleural effusion, or pneumothorax seen. The osseous structures are intact. IMPRESSION: No acute cardiopulmonary process.
[2020-03-31] MEDS ORDERED: ASPIRIN 81 MG PO STA (13:44)
[2020-03-31] MEDS ORDERED: NITROGLYCERIN OINT 1 INCH/GM PACKET TOPICAL STA (13:48)
[2020-03-31] MEDS ORDERED: NITROGLYCERIN SL TABS 0.4 MG TAB SUBLINGUAL PRN (14:07)
--- NOTE | 2020-03-31 15:16 | CT ---
EXAMINATION TYPE: CT abdomen pelvis wo con DATE OF EXAM: 03/31/2020 COMPARISON: 01/04/2020 HISTORY: Renal stones CT DLP: 1747.2 mGycm Automated exposure control for dose reduction was used. Images obtained from the diaphragm to the floor the pelvis with no contrast. There is mild scarring and subsegmental atelectasis at the lung bases. Heart size is normal. Liver spleen stomach pancreas appear normal. Bile ducts are not dilated. Gallbladder appears normal. There is no adrenal mass. There is right-sided hydronephrosis. There is 5 mm calculus at the right ur eteropelvic junction. There are multiple bilateral renal calculi measuring up to 1.5 cm. I see no hyd ronephrosis on the left side. The ureters are not dilated. There is right-sided perinephric edema. Th ere is no retroperitoneal adenopathy. Bladder distends smoothly. There is no inguinal hernia. There i s no free fluid in the pelvis. Uterus is anteverted. There is no pelvic mass. There is no mesenteric edema. There is no ascites or free air. There is no sign of a bowel obstructio n. Lumbar spine is intact. Bony pelvis appears intact. Appendix is not seen. IMPRESSION: Numerous bilateral renal calculi. Obstructing calculus at the right ureteropelvic junction with perin ephric edema and hydronephrosis which is a change compared to old exam.
[2020-03-31] MEDS ORDERED: ACETAMINOPHEN TAB 325 MG TAB PO PRN (17:52)
[2020-03-31] MEDS ORDERED: ONDANSETRON 4 MG/2 ML VIAL IVP PRN (17:52)
[2020-03-31] MEDS ORDERED: MORPHINE SULFATE 2 MG/ML SYRINGE IVP PRN (18:12)
--- NOTE | 2020-03-31 18:16 | P.HPIM ---
History of Present Illness H&P Date: 03/31/20 Chief Complaint: Worsening nausea and vomiting This is a 69-year-old female with complex past medical history noted below significant for recurrent kidney stones who presented to the emergency room with worsening right flank pain and nausea vomiting. She said that her symptoms started this morning with what she describes as right flank/groin pain that she rates as 10 out of 10 in severity. This was associated with a lot of dry heaving and one episode of vomiting. Afterwards patient felt some chest pressure that resolved quickly. She denies any shortness of breath or dizziness. No diaphoresis. She said that this is typical for her kidney stone attacks. Patient reported that over the past 10 years she usually passes one or 2 stones. And most of the time get intermittent bloody urine or pink urine. She is on anticoagulation with Rivaroxaban for a history of pulmonary emboli. Patient said that she is compliant with her medications. She denies any fevers or chills. She was evaluated in the ER and currently admitted to the hospital for further management of her medical problems Review of Systems Review of system: 14 points review of systems were obtained and were negative except to what were mentioned in the HPI. Past Medical History Past Medical History: Hypertension, Pulmonary Embolus (PE), Thyroid Disorder Additional Past Medical History / Comment(s): kidney stones History of Any Multi-Drug Resistant Organisms: None Reported Past Surgical History: Tubal Ligation Past Anesthesia/Blood Transfusion Reactions: No Reported Reaction Past Psychological History: No Psychological Hx Reported Smoking Status: Never smoker Past Alcohol Use History: None Reported Past Drug Use History: None Reported - Past Family History Father Additional Family Medical History / Comment(s): Father and older sister -stroke Mother Family Medical History: Myocardial Infarction ([place]) Sister(s) Family Medical History: Cancer Additional Family Medical History / Comment(s): younger sister Breast CA Medications and Allergies Home Medications Medication Instructions Recorded Confirmed Type Levothyroxine Sodium [Synthroid] 88 mcg PO DAILY 10/05/15 03/31/20 History Losartan Potassium [Cozaar] 25 mg PO DAILY 11/03/18 03/31/20 History Rivaroxaban [Xarelto] 20 mg PO DAILY 11/03/18 03/31/20 History Cyanocobalamin (Vitamin B-12) 1,000 mcg PO DAILY 03/31/20 03/31/20 History [Vitamin B-12] Ferrous Sulfate [Feosol] 325 mg PO BID 03/31/20 03/31/20 History Allergies Allergy/AdvReac Type Severity Reaction Status Date / Time No Known Allergies Allergy Verified 03/31/20 14:17 Physical Exam Vitals: Vital Signs Temp Pulse Pulse Resp BP BP Pulse Ox 03/31/20 16:25 97.8 F 53 L 20 142/69 97 03/31/20 15:34 98.0 F 63 18 127/80 95 03/31/20 14:00 52 L 18 127/60 96 03/31/20 11:38 98.3 F 50 L 18 143/75 99 Intake and Output 03/31/20 03/31/20 03/31/20 06:59 14:59 22:59 Other: Weight 128.82 kg 128.82 kg General: The patient is awake and alert, in no distress Eye: there is normal conjunctiva bilaterally. Neck: The neck is supple, there is no JVD. Cardiovascular: Normal S1-S2, no S3-S4, no murmurs. Respiratory: Lungs clear to auscultation bilaterally Gastrointestinal: Abdomen is soft, nontender Musculoskeletal: There is no pedal edema. Neurological:. Speech is normal. Skin: Skin is warm and dry Results CBC & Chem 7: 03/31/20 12:50 03/31/20 12:50 Labs: Abnormal Lab Results - Last 24 Hours (Table) 03/31/20 03/31/20 03/31/20 Range/Units 12:50 12:50 12:50 WBC 15.6 H (3.8-10.6) k/uL MCHC 30.2 L (31.0-37.0) g/dL Neutrophils # 13.4 H (1.3-7.7) k/uL Carbon Dioxide 31 H (22-30) mmol/L BUN 33 H (7-17) mg/dL Creatinine 1.40 H (0.52-1.04) mg/dL Glucose 141 H (74-99) mg/dL Total Bilirubin 1.4 H (0.2-1.3) mg/dL Troponin I (0.000-0.034) ng/mL Urine Appearance Bloody H (Clear) Urine RBC >182 H (0-5) /hpf Urine WBC 52 H (0-5) /hpf Ur Squamous Epith Cells 10 H (0-4) /hpf 03/31/20 03/31/20 Range/Units 12:50 15:58 WBC (3.8-10.6) k/uL MCHC (31.0-37.0) g/dL Neutrophils # (1.3-7.7) k/uL Carbon Dioxide (22-30) mmol/L BUN (7-17) mg/dL Creatinine (0.52-1.04) mg/dL Glucose (74-99) mg/dL Total Bilirubin (0.2-1.3) mg/dL Troponin I 0.678 H* 0.781 H* (0.000-0.034) ng/mL Urine Appearance (Clear) Urine RBC (0-5) /hpf Urine WBC (0-5) /hpf Ur Squamous Epith Cells (0-4) /hpf Microbiology - Last 24 Hours (Table) 03/31/20 12:50 Urine Culture - Preliminary Urine,Voided Thrombosis Risk Factor Assmnt - Choose All That Apply Each Factor Represents 1 point: Obesity (BMI >25) Each Risk Factor Represents 2 Points: Age 61-74 years Each Risk Factor Represents 3 Points: Family history of DVT/PE, History of DVT/PE Other congenital or acquired thrombophilia - If yes, enter type in comment: No Thrombosis Risk Factor Assessment Total Risk Factor Score: 9 Thrombosis Risk Factor Assessment Level: High Risk Assessment and Plan Assessment: 1. Bilateral renal calculi, noted on computed tomography scan of the abdomen with obstructing calculus at the right ureteropelvic junction with perinephritic edema and hydronephrosis. Urology consulted for further evaluation. I would order Flomax 0.4 mg twice a day. Pain control and anti-emetic as needed. 2. Acute kidney injury with evidence of right hydronephrosis on CT. Continue IV fluid hydration with normal saline at 75 mL per hour. Awaiting urology evaluation. 3. Troponin elevation, most likely non-thrombotic troponin leak. Patient denies any chest pain at this time. Twelve-lead EKG with no acute ischemic changes. LBBB noted. Left heart catheterization in September 2018 showed normal coronaries. Patient is on anticoagulation with Rivaroxaban. Avoid metoprolol secondary to bradycardia. Obtain echocardiogram. Start aspirin 81 mg daily and Lipitor 80 mg at bedtime. Cardiology consulted for further evaluation. 4. Complicated urinary tract infection secondary to kidney stones: Started on IV ceftriaxone awaiting urine culture. 5. Gross Hematuria, secondary to kidney stones. Hemoglobin stable. 6. History of pulmonary emboli on chronic anticoagulation with Rivaroxaban The patient is placed in observation with an anticipated less than 2 midnight stay for evaluation of the medical problems noted above. CODE STATUS: Full code Anticipated discharge date: To be determined based on clinical course Anticipated discharge place: Home A total of 45 minutes was spent on the care of this complex patient more than 50% of the time was spent in counseling and care coordination.
[2020-03-31] MEDS ORDERED: TAMSULOSIN 0.4 MG CAP.ER.24H PO SCH (18:30)
[2020-03-31] MEDS: SODIUM CHLORIDE 0.9% 1,000 ML IV SCH (18:41)
[2020-03-31] MEDS: LOSARTAN 25 MG TAB PO SCH (18:41)
[2020-03-31] MEDS: FERROUS SULFATE 325 MG TAB PO SCH (20:35)
[2020-03-31] MEDS ORDERED: ATORVASTATIN 80 MG TAB PO SCH (21:00)
[2020-03-31 23:59] LABS: Appearance,Urine Turbid (Clear); Bilirubin,Urine Negative (Negative); Blood,Urine Large (Negative); Color,Urine Red; Glucose,Urine (UA) Negative (Negative); Ketones,Urine Trace (Negative); Leukocyte Esterase,Urine Moderate (Negative); Mucus,Urine Occasional /hpf; Nitrite,Urine Negative (Negative); Protein,Urine 2+ (Negative); RBC,Urine >182 /hpf (0-5); Specific Gravity,Urine 1.019 (1.001-1.035); Urobilinogen,Urine <2.0 mg/dL (<2.0); WBC,Urine >182 /hpf (0-5)
[2020-04-01] MEDS ORDERED: LEVOTHYROXINE 88 MCG TAB PO SCH (06:30)
[2020-04-01] MEDS: SODIUM CHLORIDE 0.9% 1,000 ML IV SCH (06:42)
[2020-04-01 08:05] LABS: Basophils % (A) 0 %; Eosinophils # (A) 0.1 k/uL (0-0.7); Eosinophils % (A) 1 %; HCT 38.5 % (34.0-46.0); HGB 11.8 gm/dL (11.4-16.0); Hypochromasia Slight; Lymphocytes % (A) 8 %; MCH 30.1 pg (25.0-35.0); MCHC 30.8 g/dL (31.0-37.0); Mean Platelet Volume 7.7; Monocytes # (A) 0.6 k/uL (0-1.0); Monocytes % (A) 5 %; Neutrophils # (A) 10.3 k/uL (1.3-7.7); Neutrophils % (A) 85 %; Platelet Count 134 k/uL (150-450); RBC 3.93 m/uL (3.80-5.40); RDW 13.7 % (11.5-15.5); WBC 12.1 k/uL (3.8-10.6)
[2020-04-01 08:24] LABS: Calcium 8.1 mg/dL (8.4-10.2); Potassium 4.4 mmol/L (3.5-5.1)
[2020-04-01] MEDS ORDERED: TAMSULOSIN 0.4 MG CAP.ER.24H PO SCH (08:30)
[2020-04-01 08:57] VITALS: TEMP 97.9
[2020-04-01] MEDS ORDERED: ASPIRIN 81 MG PO SCH (09:00)
[2020-04-01] MEDS ORDERED: ASPIRIN 325 MG TAB PO SCH (09:00)
[2020-04-01] MEDS ORDERED: RIVAROXABAN 20 MG TAB PO SCH (09:00)
[2020-04-01] MEDS: LOSARTAN 25 MG TAB PO SCH (09:00)
[2020-04-01] MEDS: FERROUS SULFATE 325 MG TAB PO SCH (09:00)
--- NOTE | 2020-04-01 10:14 | P.DS ---
Providers Date of admission: 03/31/20 14:08 Expected date of discharge: 04/01/20 Attending physician: Kristian Morel Consults: 03/31/20 14:07 Consult Physician Urgent Consulting Provider: Breezy Novoa Consult Reason/Comments: Elevated troponin, YESSENIA presented for RLQ pain/hematuria Do you want consulting provider notified?: Already Contacted 03/31/20 15:23 Consult Physician Routine Consulting Provider: Nikhil Richard Consult Reason/Comments: obstruction stone, YESSENIA Do you want consulting provider notified?: Yes, Notify in am Primary care physician: [facility] Hospital Course: This is a 6-year-old female with complex past medical history noted below that presented to the emergency room with worsening right flank pain, nausea, and vomiting. Patient was evaluated in the ER and placed on observation for further management of her medical problems noted below. 1. Bilateral renal calculi, noted on computed tomography scan of the abdomen with obstructing calculus at the right ureteropelvic junction with perinephritic edema and hydronephrosis. Urology consulted for further evaluation but patient declined consultation and would like to follow-up with her own urologist outpatient. Pain and nausea/vomiting resolved. 2. Acute kidney injury with evidence of right hydronephrosis on CT. improved with IV fluid hydration. Creatinine almost back to normal. Follow-up with urology as soon as possible. 3. Troponin elevation, most likely non-thrombotic troponin leak. Patient denies any chest pain. Twelve-lead EKG with no acute ischemic changes. LBBB noted. Left heart catheterization in September 2018 showed normal coronaries. She was seen and evaluated by cardiology. Cleared for discharge home with no further intervention. 4. Complicated urinary tract infection secondary to kidney stones: Started on IV ceftriaxone awaiting urine culture. We will finish short course of Keflex for 3 days 5. Gross Hematuria, secondary to kidney stones. Resolved. Hemoglobin relatively stable. 6. History of pulmonary emboli on chronic anticoagulation with Rivaroxaban Patient will be discharged home in a stable condition. For further details about this hospitalization please refer to the electronic chart. Time spent on discharge > 30 minutes including counseling and coordination of care Patient Condition at Discharge: Stable Plan - Discharge Summary Discharge Rx Participant: Yes New Discharge Prescriptions: New Cephalexin [Keflex] 500 mg PO Q6HR 3 Days #12 cap Continue Levothyroxine Sodium [Synthroid] 88 mcg PO DAILY Rivaroxaban [Xarelto] 20 mg PO DAILY Losartan Potassium [Cozaar] 25 mg PO DAILY Ferrous Sulfate [Iron (65 MG Elemental)] 325 mg PO BID Cyanocobalamin (Vitamin B-12) [Vitamin B-12] 1,000 mcg PO DAILY Discharge Medication List Levothyroxine Sodium [Synthroid] 88 mcg PO DAILY 10/05/15 [History] Losartan Potassium [Cozaar] 25 mg PO DAILY 11/03/18 [History] Rivaroxaban [Xarelto] 20 mg PO DAILY 11/03/18 [History] Cyanocobalamin (Vitamin B-12) [Vitamin B-12] 1,000 mcg PO DAILY 03/31/20 [History] Ferrous Sulfate [Iron (65 MG Elemental)] 325 mg PO BID 03/31/20 [History] Cephalexin [Keflex] 500 mg PO Q6HR 3 Days #12 cap 04/01/20 [Rx] Follow up Appointment(s)/Referral(s): Keanu Villaseñor MD [Primary Care Provider] - 1-2 days Discharge Disposition: HOME SELF-CARE
--- NOTE | 2020-04-01 10:31 | P.GSCN ---
History of Present Illness Consult date: 04/01/20 Reason for Consult: Right hydronephrosis secondary to ureteral calculus History of present illness: The patient's a 69-year-old female with a history of uric acid urolithiasis who developed the onset of right lower quadrant pain associated with nausea, retching and chest pains yesterday morning. She thought the pain was similar to that experienced with previous episodes of ureteral colic and came to the emergency room in the afternoon. Computed tomography scan of the abdomen and pelvis identified a 3-4 mm calculus in the proximal right ureter with moderate right hydronephrosis. At least 2 larger nonobstructive calculi were noted in the right kidney. At least 3 nonobstructive stones were also noted in the left kidney. A troponin was obtained due to her chest pain and was minimally elevated at 0.678 and so she was admitted to the cardiac unit for observation. She says she's had no further chest pain and her abdominal pain was last present yesterday afternoon prior to coming to the cardiac unit. She no longer has nausea. The patient has a long history of uric acid urolithiasis and has failed chemolysis with urinary alkalinization. She was evaluated by Dr. Ash Thomas in 12/2019 and a computed tomography scan showed bilateral nonobstructive renal calculi. She said that he adjusted her medications and then discussed ureteroscopic removal of the stones but this has not been scheduled. She was scheduled to have a follow-up computed tomography scan of the abdomen next week. She has a history of intermittent gross hematuria since 2019 secondary to the use of Xaralto. She sustained bilateral pulmonary emboli at that time and was put on anticoagulation. She does not have a history of recurrent urinary tract infections. She has noted no change in her normal voiding pattern. Review of Systems - Constitutional Denies fever - Cardiovascular Reports as per HPI - Respiratory Denies cough, Denies dyspnea, Denies wheezing - Gastrointestinal Reports as per HPI, Reports change in bowel habits - Genitourinary Genitourinary: Reports as per HPI Past Medical History Past Medical History: Hypertension, Pulmonary Embolus (PE), Thyroid Disorder Additional Past Medical History / Comment(s): kidney stones History of Any Multi-Drug Resistant Organisms: None Reported Past Surgical History: Tubal Ligation Past Anesthesia/Blood Transfusion Reactions: No Reported Reaction Past Psychological History: No Psychological Hx Reported Smoking Status: Never smoker Past Alcohol Use History: None Reported Past Drug Use History: None Reported - Past Family History Father Additional Family Medical History / Comment(s): Father and older sister -stroke Mother Family Medical History: Myocardial Infarction ([place]) Sister(s) Family Medical History: Cancer Additional Family Medical History / Comment(s): younger sister Breast CA Medications and Allergies Home Medications Medication Instructions Recorded Confirmed Type Levothyroxine Sodium [Synthroid] 88 mcg PO DAILY 10/05/15 03/31/20 History Losartan Potassium [Cozaar] 25 mg PO DAILY 11/03/18 03/31/20 History Rivaroxaban [Xarelto] 20 mg PO DAILY 11/03/18 03/31/20 History Cyanocobalamin (Vitamin B-12) 1,000 mcg PO DAILY 03/31/20 03/31/20 History [Vitamin B-12] Ferrous Sulfate [Iron (65 MG 325 mg PO BID 03/31/20 03/31/20 History Elemental)] Cephalexin [Keflex] 500 mg PO Q6HR 3 Days #12 cap 04/01/20 Rx Ondansetron HCl [Zofran] 4 mg PO Q8H PRN #12 tab 04/01/20 Rx Allergies Allergy/AdvReac Type Severity Reaction Status Date / Time No Known Allergies Allergy Verified 03/31/20 14:17 Surgical - Exam Vital Signs Temp Pulse Resp BP Pulse Ox 98.3 F 50 L 18 143/75 99 03/31/20 11:38 03/31/20 11:38 03/31/20 11:38 03/31/20 11:38 03/31/20 11:38 - General well developed, well nourished, no distress, obese - ENT no hearing loss - Neck no masses, no lymphadectomy - Respiratory normal respiratory effort - Abdomen Abdomen: soft, non tender, no organomegaly Hernia: none Results - Labs 04/01/20 07:24 04/01/20 07:24 Abnormal Lab Results - Last 24 Hours (Table) 03/31/20 03/31/20 03/31/20 Range/Units 12:50 12:50 12:50 WBC 15.6 H (3.8-10.6) k/uL MCHC 30.2 L (31.0-37.0) g/dL Plt Count (150-450) k/uL Neutrophils # 13.4 H (1.3-7.7) k/uL Carbon Dioxide 31 H (22-30) mmol/L BUN 33 H (7-17) mg/dL Creatinine 1.40 H (0.52-1.04) mg/dL Glucose 141 H (74-99) mg/dL Calcium (8.4-10.2) mg/dL Total Bilirubin 1.4 H (0.2-1.3) mg/dL Troponin I (0.000-0.034) ng/mL Urine Appearance Bloody H (Clear) Urine Protein (Negative) Urine Ketones (Negative) Urine Blood (Negative) Ur Leukocyte Esterase (Negative) Urine RBC >182 H (0-5) /hpf Urine WBC 52 H (0-5) /hpf Urine WBC Clumps (None) /hpf Ur Squamous Epith Cells 10 H (0-4) /hpf Urine Mucus (None) /hpf 03/31/20 03/31/20 03/31/20 Range/Units 12:50 15:58 19:04 WBC (3.8-10.6) k/uL MCHC (31.0-37.0) g/dL Plt Count (150-450) k/uL Neutrophils # (1.3-7.7) k/uL Carbon Dioxide (22-30) mmol/L BUN (7-17) mg/dL Creatinine (0.52-1.04) mg/dL Glucose (74-99) mg/dL Calcium (8.4-10.2) mg/dL Total Bilirubin (0.2-1.3) mg/dL Troponin I 0.678 H* 0.781 H* 0.679 H* (0.000-0.034) ng/mL Urine Appearance (Clear) Urine Protein (Negative) Urine Ketones (Negative) Urine Blood (Negative) Ur Leukocyte Esterase (Negative) Urine RBC (0-5) /hpf Urine WBC (0-5) /hpf Urine WBC Clumps (None) /hpf Ur Squamous Epith Cells (0-4) /hpf Urine Mucus (None) /hpf 03/31/20 04/01/20 04/01/20 Range/Units 23:27 07:24 07:24 WBC 12.1 H (3.8-10.6) k/uL MCHC 30.8 L (31.0-37.0) g/dL Plt Count 134 L (150-450) k/uL Neutrophils # 10.3 H (1.3-7.7) k/uL Carbon Dioxide (22-30) mmol/L BUN 29 H (7-17) mg/dL Creatinine 1.18 H (0.52-1.04) mg/dL Glucose 112 H (74-99) mg/dL Calcium 8.1 L (8.4-10.2) mg/dL Total Bilirubin (0.2-1.3) mg/dL Troponin I (0.000-0.034) ng/mL Urine Appearance Turbid H (Clear) Urine Protein 2+ H (Negative) Urine Ketones Trace H (Negative) Urine Blood Large H (Negative) Ur Leukocyte Esterase Moderate H (Negative) Urine RBC >182 H (0-5) /hpf Urine WBC >182 H (0-5) /hpf Urine WBC Clumps Occasional H (None) /hpf Ur Squamous Epith Cells (0-4) /hpf Urine Mucus Occasional H (None) /hpf Microbiology - Last 24 Hours (Table) 03/31/20 12:50 Urine Culture - Preliminary Urine,Voided Diabetes panel 03/31/20 04/01/20 Range/Units 12:50 07:24 Sodium 139 138 (137-145) mmol/L Potassium 4.5 4.4 (3.5-5.1) mmol/L Chloride 104 105 (98-107) mmol/L Carbon Dioxide 31 H 30 (22-30) mmol/L BUN 33 H 29 H (7-17) mg/dL Creatinine 1.40 H 1.18 H (0.52-1.04) mg/dL Glucose 141 H 112 H (74-99) mg/dL Calcium 8.8 8.1 L (8.4-10.2) mg/dL AST 21 (14-36) U/L ALT 15 (4-34) U/L Alkaline Phosphatase 71 (38-126) U/L Total Protein 6.5 (6.3-8.2) g/dL Albumin 3.7 (3.5-5.0) g/dL Triglycerides 77 (<150) mg/dL HDL Cholesterol 48 (40-60) mg/dL Calcium panel 03/31/20 04/01/20 Range/Units 12:50 07:24 Calcium 8.8 8.1 L (8.4-10.2) mg/dL Albumin 3.7 (3.5-5.0) g/dL Pituitary panel 03/31/20 04/01/20 Range/Units 12:50 07:24 Sodium 139 138 (137-145) mmol/L Potassium 4.5 4.4 (3.5-5.1) mmol/L Chloride 104 105 (98-107) mmol/L Carbon Dioxide 31 H 30 (22-30) mmol/L BUN 33 H 29 H (7-17) mg/dL Creatinine 1.40 H 1.18 H (0.52-1.04) mg/dL Glucose 141 H 112 H (74-99) mg/dL Calcium 8.8 8.1 L (8.4-10.2) mg/dL Adrenal panel 03/31/20 04/01/20 Range/Units 12:50 07:24 Sodium 139 138 (137-145) mmol/L Potassium 4.5 4.4 (3.5-5.1) mmol/L Chloride 104 105 (98-107) mmol/L Carbon Dioxide 31 H 30 (22-30) mmol/L BUN 33 H 29 H (7-17) mg/dL Creatinine 1.40 H 1.18 H (0.52-1.04) mg/dL Glucose 141 H 112 H (74-99) mg/dL Calcium 8.8 8.1 L (8.4-10.2) mg/dL Total Bilirubin 1.4 H (0.2-1.3) mg/dL AST 21 (14-36) U/L ALT 15 (4-34) U/L Alkaline Phosphatase 71 (38-126) U/L Total Protein 6.5 (6.3-8.2) g/dL Albumin 3.7 (3.5-5.0) g/dL - Imaging CT scan - abdomen: image reviewed Assessment and Plan (1) Hydronephrosis with urinary obstruction due to ureteral calculus Narrative/Plan: I explained to the patient that her previous right abdominal pain was most likely related to passage of a 3-4 mm calculus from the right kidney into the proximal right ureter. Her pain resolved yesterday afternoon and it is possible that the calculus is migrating more distally. She is not infected and her creatinine this morning is improved at 1.19. From my standpoint she can be discharged and could follow up with Dr. Thomas sometime next week. I suggested that she have a copy of her computed tomography scan placed on DVD so that she can give it to Dr. Thomas for review. Current Visit: Yes Status: Acute Code(s): N13.2 - HYDRONEPHROSIS WITH RENAL AND URETERAL CALCULOUS OBSTRUCTION SNOMED Code(s): 047072590
--- NOTE | 2020-04-01 10:56 | P.CRDCN ---
History of Present Illness Consult date: 04/01/20 Consult reason: non-Q-wave CA History of present illness: History of present illness: This is a 69-year-old female with past medical history of hypertension, pulmonary embolism status post removal of clots, hypothyroidism, kidney stones. Patient presented to hospital with right lower quadrant pain. CAT scan of the abdomen and pelvis revealed bilateral calculus with an obstructing calculus causing hydro-nephrosis. Chest x-ray showed no acute findings. EKG was a sinus rhythm at 54 with a first-degree and left bundle branch block and no ST abnormalities. Troponins were 0.678, 0.71 and 0.679. WBC 15.6. BUN 33 and creatinine 1.4. Troponin 0.678, 0.71, 0.679. Cholesterol 148, triglycerides 77, LDL 85, HDL 48. Patient denies having any chest pain. She did have a heart catheterization 2019 that was normal. Review Of Systems: At the time of my evaluation: Constitutional: No fever, no chills. No fatigue. EENT: No headache. No dizziness. Lungs: No shortness of breath, cough, no sputum production. No wheezing. Cardiovascular: No chest pain, no lower extremity edema. No palpitations. No paroxysmal nocturnal dyspnea. No orthopnea. No lightheadedness or dizziness. No syncopal episodes. Abdominal: No abdominal pain. No nausea, vomiting. No diarrhea. Musculoskeletal: No myalgias. No muscle weakness. Integumentary: No wounds, no lesions. No rash or pruritus. Neurologic: No aphasia. No facial droop. No change in mentation. No head injury. No headache. Physical examination: Gen: This is a 69-year-old female. She is resting but appears to be comfortable and in no acute distress. VS: Afebrile, heart rate 65, blood pressure 125/60, pulse ox 96% on room air HEENT: Head is atraumatic, normocephalic. Pupils equal, round. Sclerae is anicteric. NECK: Supple. No JVD. No lymphadenopathy. No thyromegaly. LUNGS: Clear to auscultation. No wheezes or rhonchi. No intercostal retractions. HEART: Regular rate and rhythm. No murmur. ABDOMEN: Soft. Bowel sounds are present. No masses. No tenderness. EXTREMITIES: No pedal edema. No calf tenderness. NEUROLOGICAL: Patient is awake, alert and oriented x3. Cranial nerves 2 through 12 are grossly intact. Assessment: Left bundle branch block, possibly new on EKG Troponins elevated secondary to acute kidney injury Renal stone and hydronephrosis Hypertension History of pulmonary embolism Plan: Patient is cleared for discharge Follow-up with Dr. Novoa in the office regarding left bundle branch block Thank you kindly for this consultation. Nurse practitioner note has been reviewed, I agree with documented findings and plan of care. Patient was seen and examined. Past Medical History Past Medical History: Hypertension, Pulmonary Embolus (PE), Thyroid Disorder Additional Past Medical History / Comment(s): kidney stones History of Any Multi-Drug Resistant Organisms: None Reported Past Surgical History: Tubal Ligation Past Anesthesia/Blood Transfusion Reactions: No Reported Reaction Past Psychological History: No Psychological Hx Reported Smoking Status: Never smoker Past Alcohol Use History: None Reported Past Drug Use History: None Reported - Past Family History Father Additional Family Medical History / Comment(s): Father and older sister -stroke Mother Family Medical History: Myocardial Infarction ([place]) Sister(s) Family Medical History: Cancer Additional Family Medical History / Comment(s): younger sister Breast CA Medications and Allergies Home Medications Medication Instructions Recorded Confirmed Type Levothyroxine Sodium [Synthroid] 88 mcg PO DAILY 10/05/15 03/31/20 History Losartan Potassium [Cozaar] 25 mg PO DAILY 11/03/18 03/31/20 History Rivaroxaban [Xarelto] 20 mg PO DAILY 11/03/18 03/31/20 History Cyanocobalamin (Vitamin B-12) 1,000 mcg PO DAILY 03/31/20 03/31/20 History [Vitamin B-12] Ferrous Sulfate [Iron (65 MG 325 mg PO BID 03/31/20 03/31/20 History Elemental)] Cephalexin [Keflex] 500 mg PO Q6HR 3 Days #12 cap 04/01/20 Rx Ondansetron HCl [Zofran] 4 mg PO Q8H PRN #12 tab 04/01/20 Rx Allergies Allergy/AdvReac Type Severity Reaction Status Date / Time No Known Allergies Allergy Verified 03/31/20 14:17 Physical Exam Vitals: Vital Signs Temp Pulse Pulse Resp BP BP Pulse Ox 04/01/20 08:00 97.9 F 65 18 125/60 96 04/01/20 04:00 98.7 F 76 17 118/60 96 04/01/20 00:00 98.2 F 70 18 130/62 95 03/31/20 20:00 98.0 F 60 19 128/68 94 L 03/31/20 16:25 97.8 F 53 L 20 142/69 97 03/31/20 15:34 98.0 F 63 18 127/80 95 03/31/20 14:00 52 L 18 127/60 96 03/31/20 11:38 98.3 F 50 L 18 143/75 99 Intake and Output 03/31/20 04/01/20 04/01/20 22:59 06:59 14:59 Intake Total 200 300 Balance 200 300 Intake: Intake, IV Titration 300 Amount Sodium Chloride 0.9% 1, 300 000 ml @ 75 mls/hr IV . [id number] [facility] Rx#:[id number] Oral 200 Other: Voiding Method Bedside Commode Bedside Commode # Voids 1 Weight 128.82 kg 126.1 kg Results 04/01/20 07:24 04/01/20 07:24 Cardiac Enzymes 03/31/20 03/31/20 03/31/20 Range/Units 12:50 12:50 15:58 AST 21 (14-36) U/L Troponin I 0.678 H* 0.781 H* (0.000-0.034) ng/mL 03/31/20 Range/Units 19:04 AST (14-36) U/L Troponin I 0.679 H* (0.000-0.034) ng/mL Coagulation 03/31/20 Range/Units 12:50 PT 10.3 (9.0-12.0) sec APTT 27.7 (22.0-30.0) sec Lipids 04/01/20 Range/Units 07:24 Triglycerides 77 (<150) mg/dL Cholesterol 148 (<200) mg/dL HDL Cholesterol 48 (40-60) mg/dL CBC 03/31/20 04/01/20 Range/Units 12:50 07:24 WBC 15.6 H 12.1 H (3.8-10.6) k/uL RBC 4.53 3.93 (3.80-5.40) m/uL Hgb 13.3 11.8 (11.4-16.0) gm/dL Hct 43.9 38.5 (34.0-46.0) % Plt Count 155 134 L (150-450) k/uL Comprehensive Metabolic Panel 03/31/20 04/01/20 Range/Units 12:50 07:24 Sodium 139 138 (137-145) mmol/L Potassium 4.5 4.4 (3.5-5.1) mmol/L Chloride 104 105 (98-107) mmol/L Carbon Dioxide 31 H 30 (22-30) mmol/L BUN 33 H 29 H (7-17) mg/dL Creatinine 1.40 H 1.18 H (0.52-1.04) mg/dL Glucose 141 H 112 H (74-99) mg/dL Calcium 8.8 8.1 L (8.4-10.2) mg/dL AST 21 (14-36) U/L ALT 15 (4-34) U/L Alkaline Phosphatase 71 (38-126) U/L Total Protein 6.5 (6.3-8.2) g/dL Albumin 3.7 (3.5-5.0) g/dL Current Medications Generic Name Dose Route Start Last Admin Trade Name Freq PRN Reason Stop Dose Admin Acetaminophen 650 mg 03/31/20 17:52 Acetaminophen Tab 325 Mg Tab PO Q6HR PRN Fever and/ or Pain Aspirin 81 mg 04/01/20 09:00 04/01/20 09:00 Aspirin 81 Mg PO 81 mg DAILY AYESHA Administration Atorvastatin Calcium 80 mg 03/31/20 21:00 03/31/20 20:35 Atorvastatin 80 Mg Tab PO Not Given HS AYESHA Ferrous Sulfate 325 mg 03/31/20 21:00 04/01/20 09:00 Ferrous Sulfate 325 Mg Tab PO 325 mg BID AYESHA Administration Sodium Chloride 1,000 mls @ 75 mls/hr 03/31/20 18:00 04/01/20 06:42 Saline 0.9% IV 75 mls/hr .[id number] AYESHA Administration Ceftriaxone Sodium 1 gm/ 50 mls @ 100 mls/hr 04/01/20 09:00 04/01/20 09:00 Sodium Chloride IVPB 100 mls/hr Q24HR AYESHA Administration Levothyroxine Sodium 88 mcg 04/01/20 06:30 04/01/20 06:42 Levothyroxine 88 Mcg Tab PO 88 mcg 0630 AYESHA Administration Losartan Potassium 25 mg 03/31/20 18:00 04/01/20 09:00 Losartan 25 Mg Tab PO 25 mg DAILY AYESHA Administration Morphine Sulfate 2 mg 03/31/20 18:12 Morphine Sulfate 2 Mg/Ml Syringe IVP Q4H PRN Pain/Discomfort Nitroglycerin 0.4 mg 03/31/20 14:07 Nitroglycerin Sl Tabs 0.4 Mg Tab SUBLINGUAL Q5M PRN Chest Pain Ondansetron HCl 4 mg 03/31/20 17:52 Ondansetron 4 Mg/2 Ml Vial IVP Q6HR PRN Nausea And Vomiting Rivaroxaban 20 mg 04/01/20 09:00 04/01/20 09:00 Rivaroxaban 20 Mg Tab PO 20 mg DAILY AYESHA Administration Tamsulosin HCl 0.4 mg 04/01/20 08:30 04/01/20 09:00 Tamsulosin 0.4 Mg Cap.Er.24h PO 0.4 mg [id number] AYESHA Administration Tamsulosin HCl 0.4 mg 03/31/20 18:30 03/31/20 18:41 Tamsulosin 0.4 Mg Cap.Er.24h PO 0.4 mg PC-SUPPER AYESHA Administration Intake and Output 03/31/20 04/01/20 04/01/20 22:59 06:59 14:59 Intake Total 200 300 Balance 200 300 Intake: Intake, IV Titration 300 Amount Sodium Chloride 0.9% 1, 300 000 ml @ 75 mls/hr IV . [id number] [facility] Rx#:[id number] Oral 200 Other: Voiding Method Bedside Commode Bedside Commode # Voids 1 Weight 128.82 kg 126.1 kg 04/01/20 07:24 04/01/20 07:24
[2020-04-01 11:54] VITALS: BP 116/58; PULSE 60; RESP 20
== END 2020-04-01 15:22 | disposition home or self-care (01) ==
LOC: EC 11:34 → 3SCARD 14:08
PROVIDERS: ADMIT Internal Medicine; ATTEND Internal Medicine
DX: N17.9 Acute kidney failure, unspecified (principal); N13.2 Hydronephrosis with renal and ureteral calculous obstruction; R31.0 Gross hematuria; N39.0 Urinary tract infection, site not specified; R77.8 Other specified abnormalities of plasma proteins; E03.9 Hypothyroidism, unspecified; I44.7 Left bundle-branch block, unspecified; Z86.711 Personal history of pulmonary embolism; Z79.01 Long term (current) use of anticoagulants; Z79.890 Hormone replacement therapy; Z79.899 Other long term (current) drug therapy; I10 Essential (primary) hypertension; Z98.51 Tubal ligation status; Z87.442 Personal history of urinary calculi; Z82.3 Family history of stroke; Z82.49 Family history of ischemic heart disease and other diseases of the circulatory system; Z80.3 Family history of malignant neoplasm of breast
CPT/HCPCS: 96361 ×2; 96366; 96365; 96375; 99285; 36415; 93005; 80061; 80053; 80048; 82150; 83605; 83690; 84484; 85025 ×2; 85610; 85730; 81001; 87086; 71046; 74176; G0378 ×2; J2405; J0696 ×2; J1170

== ENCOUNTER → 2020-04-13 | Outpatient (CLI) | payer MEDICARE ==
--- NOTE | 2020-04-13 14:57 | US ---
EXAMINATION TYPE: US transvaginal DATE OF EXAM: 04/13/2020 COMPARISON: NONE CLINICAL HISTORY: R31.9 hematuria. hematuria since 10/10 with large clots for 2 weeks TECHNIQUE: Transvaginal (TV). Date of LMP: unknown EXAM MEASUREMENTS: Uterus: 12.0 x 4.5 x 5.1 cm Endometrial Stripe: 1.1 cm Right Ovary: unable to visualize Left Ovary: unable to visualize 1. Uterus: Anteverted Nabothian cysts 2. Endometrium: thickened, with anechoic area = 0.6cm 3. Right Ovary: Obscured by overlying bowel gas 4. Left Ovary: Obscured by overlying bowel gas 5. Bilateral Adnexa: appears wnl 6. Posterior cul-de-sac: wnl Incidental finding: patient unable to void prior to exam, complex mass-like area within bladder = 2 .6 x 3.8 x 4.2cm. Mass should be considered an additional workup is recommended. IMPRESSION: 1. Partial visualization of the urinary bladder demonstrates a masslike area measuring 4.2 x 3.8 x 2. 6 cm. Additional dedicated workup is recommended. 2. Pelvic ultrasound where visualized appears unremarkable
== END | disposition home or self-care (01) ==
LOC: RADUSWWP 12:42
PROVIDERS: ATTEND Family Medicine
DX: R31.9 Hematuria, unspecified (principal)
CPT/HCPCS: 76830

== ENCOUNTER → 2020-04-23 | Outpatient (CLI) | payer MEDICARE ==
--- NOTE | 2020-04-23 09:05 | US ---
EXAMINATION TYPE: US kidneys/renal and bladder DATE OF EXAM: 04/23/2020 COMPARISON: CT 03/31/2020 CLINICAL HISTORY: 69-year-old female N32.89 Other specified disorders of bladder. Hematuria with clot s, bladder mass seen on previous pelvic ultrasound, history of kidney stones. TECHNIQUE: Multiple sonographic images of the kidneys and bladder are obtained. FINDINGS: EXAM MEASUREMENTS: Right Kidney: 10.5 x 5.9 x 5.5 cm Left Kidney: 10.8 x 4.4 x 3.9 cm Post Void Residual Volume: 24.7 mL Right Kidney: cortical thinning, multiple echogenic foci with largest measuring 0.5cm. No evident hyd ronephrosis. Left Kidney: multiple echogenic foci with largest measuring 0.9cm. No evident hydronephrosis. Bladder: wnl Bilateral Jets seen: left jet seen, right jet not seen Normal Post Void Residual: Increased but within normal limits. IMPRESSION: 1. There may be early changes relating to chronic medical renal disease on the right. 2. No evident hydronephrosis. 3. Bilateral nephrolithiasis measuring up to 9 mm. 4. The right ureteral jet was not seen during the course of the exam. 5. Increased post void bladder volume of 25 mL still falls within acceptable limits.
[2020-04-23 09:20] LABS: Basophils % (A) 0 %; Eosinophils # (A) 0.1 k/uL (0-0.7); Eosinophils % (A) 2 %; Hypochromasia Moderate; Lymphocytes # (A) 1.5 k/uL (1.0-4.8); Lymphocytes % (A) 20 %; MCHC 32.3 g/dL (31.0-37.0); MCV 95.8 fL (80.0-100.0); Mean Platelet Volume 7.9; Monocytes # (A) 0.4 k/uL (0-1.0); Monocytes % (A) 5 %; Neutrophils # (A) 5.4 k/uL (1.3-7.7); Neutrophils % (A) 72 %; Platelet Count 179 k/uL (150-450); RBC 3.13 m/uL (3.80-5.40); RDW 14.1 % (11.5-15.5); WBC 7.5 k/uL (3.8-10.6)
[2020-04-23 09:28] LABS: HGB 9.7 gm/dL (11.4-16.0)
== END | disposition home or self-care (01) ==
LOC: RADUSWWP 08:15
PROVIDERS: ATTEND Family Medicine
DX: N20.0 Calculus of kidney (principal)
CPT/HCPCS: 76770; 85025

== ENCOUNTER → 2020-09-11 | Outpatient (CLI) | payer MEDICARE ==
[2020-09-11 13:16] LABS: Calcium 8.9 mg/dL (8.4-10.2); Phosphorus 3.9 mg/dL (2.5-4.5); Uric Acid 7.8 mg/dL (3.7-7.4)
--- NOTE | 2020-09-11 15:35 | US ---
EXAMINATION TYPE: US kidneys/renal and bladder DATE OF EXAM: 09/11/2020 COMPARISON: 04/23/2020 CLINICAL HISTORY: 69-year-old female N20.0 kidney stone. Patient stated had lithotripsy x 2 right kid remy this year; for follow up US; denies pain Technique: Multiple sonographic images of the kidneys and bladder are obtained. FINDINGS: EXAM MEASUREMENTS: Right Kidney: 11.2 x 5.4 x 5.2 cm Left Kidney: 10.9 x 6.2 x 4.4 cm Right Kidney: Couple echogenic foci noted. Prominent renal pelvis measuring 1.2cm A/P. No calyceal di latation to suggest hydronephrosis. Left Kidney: multiple shadowing renal calculi are seen, largest in the lower pole measuring 0.9 x 1.3 x 0.4cm. No hydronephrosis. Bladder: Partial distention limits evaluation. Post Void Residual Volume: 18.9 mL Bilateral Jets seen: seen IMPRESSION: 1. Mild pelviectasis versus extrarenal pelvis on the right. No calyceal dilatation to suggest hydrone phrosis. 2. Bilateral nephrolithiasis measuring up to 1.3 cm. 3. Increased postvoid bladder volume of 19 mL falls within acceptable limits.
--- NOTE | 2020-09-11 16:26 | XR ---
KUB HISTORY: Kidney stone Frontal KUB and [address] 03/31/2020 Overlying bowel gas obscures underlying detail. Lung bases are clear. No evident pneumoperitoneum or bowel obstruction. Calcifications in the pelvis itself likely represent vascular origins. Degenerativ e disc changes are present in the visualized spine. IMPRESSION: Limitations as described.
== END | disposition home or self-care (01) ==
LOC: RADUSWWP 10:35
PROVIDERS: ATTEND Urology
DX: N20.0 Calculus of kidney (principal)
CPT/HCPCS: 74018; 76770; 82310; 82374; 82435; 82565; 83970; 84100; 84550

== ENCOUNTER → 2020-09-14 | Outpatient (CLI) | payer MEDICARE ==
[2020-09-15 10:35] LABS: African American GFR (CKD) 75.1 (60.0-200.0); Calcium 9.2 mg/dL (8.7-10.3); Non-African American GFR(CKD) 64.8 (60.0-200.0); Phosphorus 4.3 mg/dL (2.4-5.1); Uric Acid 8.2 mg/dL (2.9-7.7)
[2020-09-15 13:07] LABS: Creatinine 24 Hour,Urine 1.12 g/24Hr (0.80-1.80); Uric Acid 24 Hour,Urine 0.22 g/24Hr (0.25-0.75)
== END | disposition home or self-care (01) ==
LOC: LABWHC1 10:59
PROVIDERS: ATTEND Urology
DX: N20.0 Calculus of kidney (principal)
CPT/HCPCS: 36415; 81003; 81050; 82310; 82340; 82374; 82435; 82565; 82570; 83970; 84100; 84300; 84550; 84560

== ENCOUNTER → 2020-10-24 | Outpatient (CLI) | payer MEDICARE ==
[2020-10-25 16:14] LABS: African American GFR (CKD) 66.1 (60.0-200.0); Anion Gap 13.1 mmol/L (4.00-12.00); Calcium 9.6 mg/dL (8.7-10.3); Carbon Dioxide 27.9 mmol/L (21.6-31.8); Potassium 4.2 mmol/L (3.5-5.5); Uric Acid 8.3 mg/dL (2.9-7.7)
== END | disposition home or self-care (01) ==
LOC: LABWHC1 10:08
PROVIDERS: ATTEND Urology
DX: N20.0 Calculus of kidney (principal)
CPT/HCPCS: 36415; 80048; 84550

== ENCOUNTER → 2021-02-13 | Outpatient (CLI) | payer MEDICARE ==
--- NOTE | 2021-02-14 07:14 | US ---
EXAMINATION TYPE: US kidneys/renal and bladder DATE OF EXAM: 02/13/2021 COMPARISON: Prior ultrasound kidneys 09/11/2020, CT 03/31/2020 CLINICAL HISTORY: N20.0 kidney stone. History of kidney stones EXAM MEASUREMENTS: Right Kidney: 10.8 x 5.6 x 4.1 cm Left Kidney: 10.8 x 5.3 x 5.0 cm Right Kidney: echogenic focus = 0.6cm lower pole, dilated renal pelvis Left Kidney: echogenic foci noted, largest = 0.8cm Bladder: Contracted Bilateral Jets seen: no Kidneys show normal cortical medullary differentiation. IMPRESSION: There is bilateral nephrolithiasis. Prominent right renal pelvis is present as on prior exam may be d ue to extrarenal pelvis.
== END | disposition home or self-care (01) ==
LOC: RADUSWWP 15:17
PROVIDERS: ATTEND Urology
DX: N20.0 Calculus of kidney (principal)
CPT/HCPCS: 76770

== ENCOUNTER → 2021-06-18 | Outpatient (CLI) | payer MEDICARE ==
--- NOTE | 2021-06-18 11:52 | XR ---
EXAM TYPE: LUMBAR SPINE X RAY SERIES COMPARISON: NONE HISTORY: Pain TECHNIQUE: 3 views are submitted. FINDINGS: Alignment is anatomic. The pedicles are intact. The transverse processes are intact. There is curv ature of the spine with diffuse osteopenia and multilevel degenerative disc disease. Severe facet art hropathy L4-5 and L5-S1. Hypertrophic spurring anteriorly at multiple levels. IMPRESSION: 1. Multilevel hypertrophic spurring with severe facet arthropathy L4-5 and L5-S1 likely resulting in foraminal encroachment correlate with MRI as clinically warranted.
== END | disposition home or self-care (01) ==
LOC: RADXRMAIN 11:16
PROVIDERS: ATTEND Nurse Practitioner Adult Health
DX: M47.817 Spondylosis without myelopathy or radiculopathy, lumbosacral region (principal); M25.78 Osteophyte, vertebrae
CPT/HCPCS: 72100

== ENCOUNTER → 2021-06-18 | Outpatient (CLI) | payer MEDICARE ==
--- NOTE | 2021-06-18 17:24 | US ---
EXAMINATION TYPE: US kidneys/renal and bladder DATE OF EXAM: 06/18/2021 COMPARISON: 02/13/2021 CLINICAL HISTORY: 70-year-old female N20.0 Kidney stones. TECHNIQUE: Multiple sonographic images of the kidneys and bladder are obtained. FINDINGS: EXAM MEASUREMENTS: Right Kidney: 11.4 x 5.1 x 5.6 cm Left Kidney: 11.1 x 4.3 x 5.6 cm Right Kidney: 5 mm echogenic focus lower pole, unable to prove shadowing, stone versus vessel wall ec ho. Left Kidney: at least two shadowing stones seen, largest midpole measures 0.8 x 1.0 cm. No hydronephrosis seen on either side. Bladder: Partially distended bladder shows no gross abnormality. IMPRESSION: At least 2 nonobstructing calculi in the left kidney measuring up to 1 cm. Either artifact or a small 5 mm right lower pole calculus. No hydronephrosis.
== END | disposition home or self-care (01) ==
LOC: RADUSWWP 11:44
PROVIDERS: ATTEND Urology
DX: N20.0 Calculus of kidney (principal)
CPT/HCPCS: 76770

== ENCOUNTER → 2021-06-18 | Outpatient (CLI) | payer MEDICARE ==
[2021-06-18 15:02] LABS: Basophils # (A) 0.03 X 10*3/uL (0.00-0.10); Basophils % (A) 0.4 %; Eosinophils # (A) 0.13 X 10*3/uL (0.04-0.35); Eosinophils % (A) 1.9 %; HCT 41.9 % (37.2-46.3); Lymphocytes # (A) 1.39 X 10*3/uL (0.90-5.00); Lymphocytes % (A) 20.2 %; MCH 30.2 pg (27.0-32.0); MCV 97.4 fL (80.0-97.0); Mean Platelet Volume 10.8 fL (9.5-12.2); Monocytes # (A) 0.48 X 10*3/uL (0.20-1.00); Neutrophils # (A) 4.82 X 10*3/uL (1.80-7.70); Neutrophils % (A) 70.2 %; Platelet Count 152 X 10*3/uL (140-440); RDW 12.8 % (11.5-14.5); WBC 6.87 X 10*3/uL (4.50-10.00)
[2021-06-18 17:21] LABS: Albumin 3.8 g/dL (3.8-4.9); Albumin/Globulin Ratio 1.51 (1.60-3.17); Anion Gap 12.3 mmol/L (10.00-18.00); BUN/Creat Ratio 25.94 Ratio (12.00-20.00); Blood Urea Nitrogen 23.5 mg/dL (9.0-27.0); Calcium 8.9 mg/dL (8.7-10.3); Carbon Dioxide 27.1 mmol/L (20.0-27.5); Globulin 2.5 g/dL (1.6-3.3); Non-African American GFR(CKD) 63.8 (60.0-200.0); Potassium 3.9 mmol/L (3.5-5.5); T4, Free (Free Thyroxine) 1.35 ng/dL (0.800-1.800); Total Bilirubin 0.9 mg/dL (0.30-1.20); Total Protein 6.3 g/dL (6.2-8.2); Uric Acid 5.7 mg/dL (2.9-7.7)
== END | disposition home or self-care (01) ==
LOC: LABWHC1 11:06
PROVIDERS: ATTEND Urology
DX: I10 Essential (primary) hypertension (principal); E03.9 Hypothyroidism, unspecified; N20.0 Calculus of kidney
CPT/HCPCS: 36415; 80053; 84439; 84443; 84550; 85025

== ENCOUNTER → 2021-10-08 | Outpatient (CLI) | payer MEDICARE ==
[2021-10-08 18:40] LABS: HCT 45.8 % (37.2-46.3); MCH 29.7 pg (27.0-32.0); MCHC 30.6 g/dL (32.0-37.0); MCV 97.2 fL (80.0-97.0); Mean Platelet Volume 11.2 fL (9.5-12.2); NRBC Per 100 WBC 0 /100 WBCS (0.0-0.0); Platelet Count 172 X 10*3/uL (140-440); RBC 4.71 X 10*6/uL (4.10-5.20); RDW 12.8 % (11.5-14.5)
[2021-10-08 18:49] LABS: African American GFR (CKD) 67.7 (60.0-200.0); Albumin 4.1 g/dL (3.8-4.9); Albumin/Globulin Ratio 1.44 (1.60-3.17); BUN/Creat Ratio 33.64 Ratio (12.00-20.00); Blood Urea Nitrogen 32.8 mg/dL (9.0-27.0); Calcium 9.3 mg/dL (8.7-10.3); Carbon Dioxide 29.2 mmol/L (20.0-27.5); Globulin 2.8 g/dL (1.6-3.3); Non-African American GFR(CKD) 58.4 (60.0-200.0); Potassium 4.1 mmol/L (3.5-5.5); Total Bilirubin 0.9 mg/dL (0.30-1.20); Total Protein 6.9 g/dL (6.2-8.2)
== END | disposition home or self-care (01) ==
LOC: LABT 10:44
PROVIDERS: ATTEND Nurse Practitioner Family
DX: R29.898 Other symptoms and signs involving the musculoskeletal system (principal); R26.81 Unsteadiness on feet; R90.82 White matter disease, unspecified
CPT/HCPCS: 36415; 80053; 85027

== ENCOUNTER → 2021-12-10 | Outpatient (CLI) | payer MEDICARE ==
--- NOTE | 2021-12-10 11:59 | US ---
EXAMINATION TYPE: US kidneys/renal and bladder DATE OF EXAM: 12/10/2021 COMPARISON: 11/2021 CLINICAL HISTORY: N20.0 KIDNEY STONE. Hx of kidney stones, Rt Lithotripsy 2 years ago EXAM MEASUREMENTS: Right Kidney: 11.5 x 5.8 x 5.0 cm Left Kidney: 10.7 x .0 x 4.2 cm Right Kidney: Limited due to patient's physical limitations, hypoechoic area noted in mid pelvic area measuring 2.4 x 1.7 x 1.6cm, multiple hyperechoic areas seen in pelvis, Inferior pole calcification garrett. 1.0 x 0.6 x 0.9cm Left Kidney: Multiple hyperechoic areas noted with posterior shadowing, largest two measures 1) inf 1 .7 x 0.3 x 1.3cm 2.) mid/inf 0.8 x 0.6 x 0.8cm Bladder: not fully distended and therefore limited. Bilateral Jets seen: Yes IMPRESSION: 1. Bilateral nephrolithiasis. There is a hypoechoic indeterminate lesion right renal pelvis. Recommen d CT scan. 2. No hydronephrosis.
[2021-12-10 18:00] LABS: African American GFR (CKD) 66.8 (60.0-200.0); Anion Gap 9.7 mmol/L (10.00-18.00); BUN/Creat Ratio 32.45 Ratio (12.00-20.00); Blood Urea Nitrogen 31.8 mg/dL (9.0-27.0); Carbon Dioxide 28.8 mmol/L (20.0-27.5); Non-African American GFR(CKD) 57.6 (60.0-200.0); Potassium 4.1 mmol/L (3.5-5.5)
== END | disposition home or self-care (01) ==
LOC: RADUSWWP 10:48
PROVIDERS: ATTEND Urology
DX: N20.0 Calculus of kidney (principal)
CPT/HCPCS: 76770; 80048; 84550

== ENCOUNTER → 2022-03-13 | Outpatient (CLI) | payer MEDICARE ==
--- NOTE | 2022-03-13 13:18 | US ---
EXAMINATION TYPE: US kidneys/renal and bladder DATE OF EXAM: 03/13/2022 COMPARISON: US 2021 CLINICAL HISTORY: N20.0, N18.31chronic kidney. History of kidney stones EXAM MEASUREMENTS: Right Kidney: 10.7 x 5.4 x 5.6 cm Left Kidney: 11.2 x 4.4 x 5.4 cm Difficult and limited study due to patient body habitus Right Kidney: limited visualization, hypoechoic area and calcifications from previous exam not seen o n today's study Left Kidney: multiple stones seen with largest measuring 1.0cm inferior pole Bladder: wnl Bilateral Jets seen: yes Suboptimal study. No hydronephrosis seen bilaterally. Bladder adequately distended. Bilateral distal ureter jets are seen. IMPRESSION: No hydronephrosis seen bilaterally.
[2022-03-13 19:12] LABS: African American GFR (CKD) 67.5 (60.0-200.0); Calcium 9.1 mg/dL (8.7-10.3); Carbon Dioxide 30.2 mmol/L (20.0-27.5); Non-African American GFR(CKD) 58.3 (60.0-200.0); Uric Acid 4.7 mg/dL (2.9-7.7)
[2022-03-13 19:19] LABS: Phosphorus 3.8 mg/dL (2.4-5.1)
== END | disposition home or self-care (01) ==
LOC: RADUSWWP 11:58
PROVIDERS: ATTEND Urology
DX: N18.31 Chronic kidney disease, stage 3a (principal); N20.0 Calculus of kidney
CPT/HCPCS: 76770; 82310; 82374; 82435; 82565; 83970; 84100; 84550

== ENCOUNTER → 2022-03-17 | Outpatient (CLI) | payer MEDICARE ==
[2022-03-17 20:20] LABS: African American GFR (CKD) 71.3 (60.0-200.0); Calcium 8.8 mg/dL (8.7-10.3); Carbon Dioxide 26.7 mmol/L (20.0-27.5); Non-African American GFR(CKD) 61.5 (60.0-200.0); Uric Acid 4.9 mg/dL (2.9-7.7)
[2022-03-17 20:42] LABS: Phosphorus 3.6 mg/dL (2.4-5.1)
== END | disposition home or self-care (01) ==
LOC: LABWHC1 12:39
PROVIDERS: ATTEND Urology
DX: N20.0 Calculus of kidney (principal)
CPT/HCPCS: 36415; 82310; 82374; 82435; 82565; 83970; 84100; 84550

== ENCOUNTER → 2022-05-27 | Outpatient (CLI) | payer MEDICARE ==
--- NOTE | 2022-05-27 15:20 | US ---
EXAMINATION TYPE: US transvaginal DATE OF EXAM: 05/27/2022 COMPARISON: NONE CLINICAL HISTORY: N95.0 POSTMENOPAUSAL BLEEDING. TECHNIQUE: Transvaginal (TV). Incontinent patient unable to fill bladder Date of LMP: post menopausal patient EXAM MEASUREMENTS: Uterus: 7.3 x 3.6 x 3.7 cm Endometrial Stripe: 0.6 cm Right Ovary: Obscured by overlying bowel gas Left Ovary: Obscured by overlying bowel gas Morbidly obese patient, technically difficult, limited study. 1. Uterus: cyst measuring 3mm, nabothian cysts in cervix 2. Endometrium: thickened for post menopausal patient 3. Right Ovary: Obscured by overlying bowel gas 4. Left Ovary: Obscured by overlying bowel gas 5. Bilateral Adnexa: wnl 6. Posterior cul-de-sac: wnl Heterogeneous uterus with tiny nabothian cysts in the cervix. Endometrial stripe measures 4 to 6 mm w hich is upper limits of normal to mildly thickened. No free fluid. Neither ovary seen. No suspicious adnexal masses. IMPRESSION: Upper limits of normal to mildly thickened endometrial stripe for postmenopausal female. Sampling advised to exclude neoplasm in patient with bleeding.
== END | disposition home or self-care (01) ==
LOC: RADUSWWP 14:15
PROVIDERS: ATTEND Family Medicine
DX: N95.0 Postmenopausal bleeding (principal); Z78.0 Asymptomatic menopausal state
CPT/HCPCS: 76830

== ENCOUNTER → 2022-09-18 | Outpatient (CLI) | payer MEDICARE ==
--- NOTE | 2022-09-18 16:24 | US ---
EXAMINATION TYPE: US kidneys/renal and bladder DATE OF EXAM: 09/18/2022 COMPARISON: US CLINICAL INDICATION: Female, 71 years old with history of N20.0; F/U known renal stones EXAM MEASUREMENTS: Right Kidney: 10.5 x 5.3 x 5.4 cm Left Kidney: 10.7 x 4.6 x 4.4 cm Right Kidney: Cortical thinning, no evidence of hydronephrosis Left Kidney: No evidence of hydronephrosis, possibly up to 3 renal calculi, 1) mid= 1.1 cm, 2) mid= 0 .8 cm, 3) lower pole= 0.9 cm Bladder: wnl Bilateral Jets seen: Yes IMPRESSION: No hydronephrosis. Nonobstructive left renal calculi measuring up to 1.1 cm.
[2022-09-19 01:56] LABS: BUN/Creat Ratio 16.67 Ratio (12.00-20.00); Basophils # (A) 0.06 X 10*3/uL (0.00-0.10); Basophils % (A) 0.7 %; Carbon Dioxide 26.8 mmol/L (20.0-27.5); Chloride 104 mmol/L (96-109); Chol/HDL Ratio 4.52 Ratio; Eosinophils % (A) 2.4 %; Glucose 94 mg/dL (70-110); HCT 45.4 % (37.2-46.3); Immature Grans, Automated 0.2 %; LDL Cholesterol,Calculated 119.9 mg/dL (0.0-131.0); Lymphocytes # (A) 1.59 X 10*3/uL (0.90-5.00); Lymphocytes % (A) 19.3 %; MCH 30.3 pg (27.0-32.0); MCHC 30.8 g/dL (32.0-37.0); MCV 98.3 fL (80.0-97.0); Mean Platelet Volume 11.1 fL (9.5-12.2); Monocytes # (A) 0.56 X 10*3/uL (0.20-1.00); Monocytes % (A) 6.8 %; NRBC Per 100 WBC 0 /100 WBCS (0.0-0.0); Neutrophils # (A) 5.79 X 10*3/uL (1.80-7.70); Neutrophils % (A) 70.6 %; Non-African American GFR(CKD) 63.9 (60.0-200.0); Platelet Count 126 X 10*3/uL (140-440); RBC 4.62 X 10*6/uL (4.10-5.20); RDW 12.4 % (11.5-14.5); Sodium 140 mmol/L (135-145); Uric Acid 4.3 mg/dL (2.9-7.7); WBC 8.22 X 10*3/uL (4.50-10.00)
== END | disposition home or self-care (01) ==
LOC: RADUSWWP 12:23
PROVIDERS: ATTEND Urology
DX: N20.0 Calculus of kidney (principal); N18.31 Chronic kidney disease, stage 3a
CPT/HCPCS: 76770; 80048; 80061; 84550; 85025

== ENCOUNTER → 2023-02-05 | Outpatient (CLI) | payer MEDICARE ==
[2023-02-05 14:30] LABS: Basophils % (A) 0 %; Eosinophils # (A) 0.1 k/uL (0-0.7); Eosinophils % (A) 1 %; HCT 41.1 % (34.0-46.0); HGB 13.4 gm/dL (11.4-16.0); Lymphocytes # (A) 1.2 k/uL (1.0-4.8); Lymphocytes % (A) 19 %; MCHC 32.7 g/dL (31.0-37.0); MCV 97.9 fL (80.0-100.0); Mean Platelet Volume 8.2; Monocytes # (A) 0.4 k/uL (0-1.0); Monocytes % (A) 6 %; Neutrophils # (A) 4.7 k/uL (1.3-7.7); Neutrophils % (A) 72 %; Platelet Count 125 k/uL (150-450); RDW 12.9 % (11.5-15.5); WBC 6.5 k/uL (3.8-10.6)
--- NOTE | 2023-02-05 14:30 | XR ---
EXAMINATION TYPE: XR chest 2V DATE OF EXAM: 02/05/2023 COMPARISON: None TECHNIQUE: PA and lateral views submitted. HISTORY: Uterine neoplasm FINDINGS: The lungs are clear and there is no pneumothorax, pleural effusion, or focal pneumonia. Heart size normal and no overt failure. Osseous structures demonstrate hypertrophic and degenerative changes of the spine. Atherosclerotic change aorta. Mild emphysematous changes suspected. IMPRESSION: 1. No acute process.
[2023-02-05 14:36] LABS: ALT 19 U/L (4-34); AST 28 U/L (14-36); African American GFR (CKD) 82 (>60 ml/min/1.73 sqM); Albumin 3.6 g/dL (3.5-5.0); Albumin/Globulin Ratio 1.2; Alkaline Phosphatase 76 U/L (38-126); Anion Gap 4 mmol/L; Blood Urea Nitrogen 20 mg/dL (7-17); Calcium 9.1 mg/dL (8.4-10.2); Carbon Dioxide 30 mmol/L (22-30); Chloride 104 mmol/L (98-107); Globulin 3.1 g/dL; Glucose 89 mg/dL (74-99); Non-African American GFR(CKD) 71 (>60 ml/min/1.73 sqM); Potassium 4.3 mmol/L (3.5-5.1); Sodium 138 mmol/L (137-145); Total Protein 6.7 g/dL (6.3-8.2)
[2023-02-05 14:40] LABS: Prothrombin Time 10.1 sec (9.0-12.0)
[2023-02-05 14:51] LABS: Appearance,Urine Clear (Clear); Bacteria,Urine Rare /hpf; Bilirubin,Urine Negative (Negative); Blood,Urine Negative (Negative); Color,Urine Light Yellow; Glucose,Urine (UA) Negative (Negative); Ketones,Urine Negative (Negative); Leukocyte Esterase,Urine Small (Negative); Mucus,Urine Rare /hpf; Nitrite,Urine Negative (Negative); Protein,Urine Negative (Negative); RBC,Urine 1 /hpf (0-5); Specific Gravity,Urine 1.018 (1.001-1.035); Squamous Epithelial Cell,Urine 3 /hpf (0-4); Urobilinogen,Urine <2.0 mg/dL (<2.0); WBC,Urine 9 /hpf (0-5)
[2023-02-05 14:53] LABS: T4, Free (Free Thyroxine) 1.63 ng/dL (0.78-2.19)
--- NOTE | 2023-02-05 18:18 | CT ---
EXAMINATION TYPE: CT ChestAbdPelvis w con CT DLP: 2460.9 mGycm, Automated exposure control for dose reduction was used. DATE OF EXAM: 02/05/2023 5:21 PM COMPARISON: 03/31/2020, 07/01/2019. 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 Technique: Multiple axial images of the chest, abdomen, and pelvis were obtained. Two-dimensional cor onal and sagittal reconstructions were obtained. Contrast used:100 ml mL of Isovue 300 with IV Contrast, Oral contrast used: with Oral Contrast Findings: CHEST: LUNGS/ PLEURA: Left anterior lower lung consolidation like change measuring 15 x 11 mm. Series 3 imag e 43.r 3 mm pulmonary nodule image 30 of to be stable from 2020. AIRWAY: Patent and unremarkable. HEART: Mitral valve repair changes versus calcifications. MEDIASTINUM: No gross evidence of adenopathy. VASCULATURE: No aortic aneurysm. MUSCULOSKELETAL: Moderate disc degeneration changes are present throughout the thoracolumbar spine. M ultilevel degeneration changes throughout the spine. SOFT TISSUES/LYMPH NODES: Unremarkable. LOWER NECK: No significant findings. ABDOMEN: ABDOMEN LIVER: Unremarkable GALLBLADDER AND BILE DUCTS: Unremarkable. PANCREAS: Unremarkable. SPLEEN: Unremarkable. ADRENAL GLANDS: Unremarkable. KIDNEYS AND URETERS: No evidence of hydronephrosis or obstructing renal calculus. Nonobstructing terr itory on the left measuring up to 7 mm. PELVIS BLADDER: Incompletely distended but grossly unremarkable. REPRODUCTIVE: No obvious mass seen within the uterus. ABDOMEN & PELVIS STOMACH AND BOWEL: No evidence of bowel obstruction. The appendix is normal. PERITONEUM: No evidence of pneumoperitoneum or free fluid. VASCULATURE: No evidence of aortic aneurysm. MUSCULOSKELETAL: No acute osseous abnormalities LYMPH NODES: No gross evidence for lymphadenopathy. SOFT TISSUE/ABDOMINAL WALL: Fat-containing umbilical hernia. IMPRESSION: 1. No obvious uterine mass. No evidence for lymphadenopathy. There is a left lower lung anterior lat eral consolidation like change which is favored to represent atelectasis, no other evidence for metas tatic disease. Short-term follow-up CT in 3-6 months may be of benefit. 2. Nonobstructing left renal calculi. 3. Fat-containing buccal hernia.
== END | disposition home or self-care (01) ==
LOC: RADCTMAIN 13:44
PROVIDERS: ATTEND Obstetrics & Gynecology
DX: Z01.818 Encounter for other preprocedural examination (principal); D39.0 Neoplasm of uncertain behavior of uterus; E03.9 Hypothyroidism, unspecified; I10 Essential (primary) hypertension; N20.0 Calculus of kidney; K42.9 Umbilical hernia without obstruction or gangrene
CPT/HCPCS: 84439; 84481; 80053; 84443; 85025; 85610; 81001; 83036; 71046; 71260; 74177; 93005; Q9967

== ENCOUNTER → 2023-03-30 | Outpatient (CLI) | payer MEDICARE ==
--- NOTE | 2023-03-30 16:22 | US ---
EXAMINATION TYPE: US kidneys/renal and bladder DATE OF EXAM: 03/30/2023 COMPARISON: 02/05/2023 CLINICAL INDICATION: Female, 72 years old with history of N20.0 CALCULUS OF KIDNEY; known stones on t he left, not symptomatic EXAM MEASUREMENTS: Right Kidney: 9.9 x 5.1 x 5.6 cm Left Kidney: 10.0 x 4.0 x 4.6 cm Right Kidney: No hydronephrosis or masses seen Left Kidney: 1.0 x 1.0cm echogenic cluster of stones versus single stone seen Bladder: wnl Bilateral Jets seen: yes IMPRESSION: 1. No evidence for obstructive uropathy. 2. Left renal nonobstructing calculi.
[2023-03-31 02:30] LABS: Albumin 4.1 d/dL (3.8-4.9); Immunoglobulin M 81.3 mg/dL (40.0-280.0); Protein, Total 6.3 d/dL (6.2-8.2)
[2023-03-31 02:42] LABS: BUN/Creat Ratio 17.56 Ratio (12.00-20.00); Blood Urea Nitrogen 15.8 mg/dL (9.0-27.0); Calcium 9.4 mg/dL (8.7-10.3); Carbon Dioxide 26.1 mmol/L (21.6-31.8); Chloride 102 mmol/L (96-109); Glucose 90 mg/dL (70-110); Potassium 4.3 mmol/L (3.5-5.5); Sodium 142 mmol/L (135-145); Uric Acid 4.4 mg/dL (2.9-7.7)
[2023-03-31 03:33] LABS: HCT 43.2 % (37.2-46.3); HGB 13.5 d/dL (12.0-15.0); MCH 30.5 pg (27.0-32.0); MCHC 31.3 d/dL (32.0-37.0); MCV 97.7 FL (80.0-97.0); NRBC Per 100 WBC 0 X 10*3/uL (0.00-0.01); Platelet Count 139 X 10*3/uL (140-440); RBC 4.42 X 10*6/uL (4.10-5.20); WBC 7.97 X 10*3/uL (4.50-10.00)
[2023-03-31 04:29] LABS: Erythrocyte Sedimentation Rate 24 mm/Hr (0-30)
[2023-03-31 14:04] LABS: C-ANCA <1:20 Titer (<1:20)
[2023-03-31 19:18] LABS: Gamma Globulin 0.83 d/dL (0.70-1.50)
== END | disposition home or self-care (01) ==
LOC: RADUSWWP 15:29
PROVIDERS: ATTEND Urology
DX: N20.0 Calculus of kidney (principal); N30.21 Other chronic cystitis with hematuria; G62.9 Polyneuropathy, unspecified
CPT/HCPCS: 76770; 80048; 81050; 82570; 82607; 83036; 84156; 84165; 84550; 85027; 85652; 86038; 86140; 86255; 86334; 86780

== ENCOUNTER → 2023-04-02 | Outpatient (CLI) | payer MEDICARE ==
[2023-04-02 16:41] LABS: Albumin 4.1 g/dL (3.8-4.9); Immunoglobulin M 72.8 mg/dL (40.0-280.0); Protein, Total 6.3 g/dL (6.2-8.2)
[2023-04-02 19:30] LABS: Blood Urea Nitrogen 18.2 mg/dL (9.0-27.0); C Reactive Protein 0.3 mg/dL (0.00-0.80)
[2023-04-02 21:55] LABS: HCT 43.7 % (37.2-46.3); HGB 13.7 g/dL (12.0-15.0); MCH 30.9 pg (27.0-32.0); MCHC 31.4 g/dL (32.0-37.0); MCV 98.4 FL (80.0-97.0); Mean Platelet Volume 11.5 FL (9.5-12.2); NRBC Per 100 WBC 0 X 10*3/uL (0.00-0.01); Platelet Count 130 X 10*3/uL (140-440); RBC 4.44 X 10*6/uL (4.10-5.20); RDW 13.2 % (11.5-14.5); WBC 6.56 X 10*3/uL (4.50-10.00)
[2023-04-02 22:13] LABS: Erythrocyte Sedimentation Rate 11 mm/Hr (0-30)
[2023-04-03 13:54] LABS: C-ANCA <1:20 Titer (<1:20)
[2023-04-03 15:05] LABS: Creatinine 24 Hour,Urine 0.94 g/24hr (0.80-1.80); Total Protein 24 Hour,Urine 220.1 mg/24Hr (0.0-165.0); Total Volume 24 Hour,Urine 775 mL
[2023-04-03 15:56] LABS: Gamma Globulin 0.79 g/dL (0.70-1.50)
== END | disposition home or self-care (01) ==
LOC: LABWHC1 10:17
PROVIDERS: ATTEND Physician Assistant Medical
DX: G62.9 Polyneuropathy, unspecified (principal)
CPT/HCPCS: 36415; 81050; 82570; 83036; 84156; 84165; 84520; 85027; 85652; 86038; 86140; 86255; 86334; 86780

== ENCOUNTER → 2023-04-08 | Outpatient (CLI) | payer MEDICARE | END | disposition home or self-care (01) | LOC: LABPRL 10:37 | PROVIDERS: ATTEND Physician Assistant Medical | DX: G62.9 Polyneuropathy, unspecified (principal) ==

== ENCOUNTER 2023-05-06 09:38 | Day surgery (SDC) | payer MEDICARE ==
[~2023-05-06 09:38] MED LIST: LACTATED RINGERS 1,000 ML IV SCH
[2023-05-06 10:14] VITALS: TEMP 97.1
[2023-05-06] MEDS ORDERED: PROPOFOL 10 MG/ML 20 ML VIAL IV ONE (10:48)
--- NOTE | 2023-05-06 11:05 | P.PCN ---
Date of Procedure: 05/06/23 Procedure(s) Performed: BRIEF HISTORY: Patient is a 72-year-old pleasant white female scheduled for an elective colonoscopy as a part of screening for colon cancer. PROCEDURE PERFORMED: Colonoscopy. PREOPERATIVE DIAGNOSIS: Screening for colon cancer. IV sedation per Anesthesia. PROCEDURE: After informed consent was obtained, the patient, was brought into the endoscopy unit. IV sedation was administered by Anesthesia under continuous monitoring. Digital rectal examination was normal. Initially the Olympus CF-160 flexible video colonoscope was then inserted in the rectum, gradually advanced into the cecum without any difficulty. Careful examination was performed as the scope was gradually being withdrawn. Ileocecal valve and the appendiceal orifice were visualized and appeared normal. Prep was excellent. Mucosa of the cecum, ascending colon, transverse colon, descending colon, sigmoid colon, and rectum appeared normal. Retroflexion was performed in the rectum and no lesions were seen. The patient tolerated the procedure well. IMPRESSION: Normal-appearing colon from rectum to cecum with no evidence of colorectal neoplasia . RECOMMENDATIONS: Findings of this examination were discussed with the patient as well as her family. She was advised to have a repeat screening colonoscopy in 10 years..
[2023-05-06 11:30] VITALS: BP 139/83; PULSE 59; RESP 12
== END 2023-05-06 11:35 | disposition home or self-care (01) ==
LOC: ORWHC2ENDO 09:38
PROVIDERS: ATTEND Internal Medicine Gastroenterology
DX: Z12.11 Encounter for screening for malignant neoplasm of colon (principal); I10 Essential (primary) hypertension; E78.5 Hyperlipidemia, unspecified; E07.9 Disorder of thyroid, unspecified; I26.99 Other pulmonary embolism without acute cor pulmonale; Z79.899 Other long term (current) drug therapy; Z79.890 Hormone replacement therapy
CPT/HCPCS: J2704; G0121; 45378

== ENCOUNTER → 2023-09-22 | Outpatient (CLI) | payer MEDICARE ==
[2023-09-22 15:25] LABS: BUN/Creat Ratio 23.44 Ratio (12.00-20.00); Blood Urea Nitrogen 21.1 mg/dL (9.0-27.0); Calcium 9.2 mg/dL (8.7-10.3); Carbon Dioxide 29.4 mmol/L (21.6-31.8); Chloride 101 mmol/L (96-109); Glucose 100 mg/dL (70-110); Potassium 4.3 mmol/L (3.5-5.5); Sodium 140 mmol/L (135-145); Uric Acid 5.1 mg/dL (2.9-7.7)
--- NOTE | 2023-09-23 09:40 | US ---
EXAMINATION TYPE: US kidneys/renal and bladder DATE OF EXAM: 09/22/2023 COMPARISON: NONE CLINICAL INDICATION: Female, 72 years old with history of N20.0 CALCULUS OF KIDNEY; known left renal stones, no symptoms today, h/o multiple stones and lithotripsy EXAM MEASUREMENTS: Right Kidney: 10.3 x 4.3 x 5.1 cm Left Kidney: 10.2 x 4.3 x 4.4 cm Right Kidney: No hydronephrosis or masses seen Left Kidney: inferior shadowing stone = 1.5 x 1.5cm Bladder: wnl IMPRESSION: Nonobstructing inferior pole left renal stone
== END | disposition home or self-care (01) ==
LOC: RADUSWWP 10:05
PROVIDERS: ATTEND Urology
DX: N20.0 Calculus of kidney (principal)
CPT/HCPCS: 76770; 80048; 84550

== ENCOUNTER → 2023-10-07 | Outpatient (CLI) | payer MEDICARE ==
--- NOTE | 2023-10-07 16:36 | XR ---
EXAMINATION TYPE: XR KUB DATE OF EXAM: 10/07/2023 4:04 PM CLINICAL INDICATION:Female, 72 years old with history of N20.0 CALCULUS OF KIDNEY; [facility] COMPARISON: 09/11/2020. TECHNIQUE: One radiographic view of the abdomen was obtained. FINDINGS: The bowel gas pattern is nonspecific without dilated loops of small or large bowel. There i s no evidence for organomegaly or pneumoperitoneum. The osseous structures are intact. Left renal s taghorn calculus measuring up to 22 x 7 mm. Fecal material and gas are demonstrated throughout the co cari and rectum. IMPRESSION: 1. Left staghorn calculus. 2. No right renal cocci. 3. Nonspecific bowel gas pattern without radiographic evidence for acute process.
== END | disposition home or self-care (01) ==
LOC: RADXRMAIN 15:39
PROVIDERS: ATTEND Urology
DX: N20.2 Calculus of kidney with calculus of ureter (principal)
CPT/HCPCS: 74018

== ENCOUNTER → 2023-10-15 | Outpatient (CLI) | payer MEDICARE ==
--- NOTE | 2023-10-15 11:23 | CT ---
EXAMINATION TYPE: CT abdomen pelvis wo con CT DLP: 1102 mGycm, Automated exposure control for dose reduction was used. DATE OF EXAM: 10/15/2023 11:14 AM COMPARISON: 02/05/2023 CLINICAL INDICATION:Female, 72 years old with history of N20.0 CALCULUS OF KIDNEY; left flank pain TECHNIQUE: Axial CT abdomen pelvis wo con;Sagittal and coronal reformats were created on a separate workstation. Contrast used: mL of , (none if empty) Oral contrast used: without Oral Contrast (none if empty) FINDINGS: LOWER CHEST: Mitral valve annular cusp patient's. ABDOMEN LIVER: Unremarkable GALLBLADDER AND BILE DUCTS: Unremarkable. PANCREAS: Unremarkable. SPLEEN: Unremarkable. ADRENAL GLANDS: Unremarkable. KIDNEYS AND URETERS: Bilateral renal calculi measuring up to 5 mm on the right and 10 mm on the left. No evidence for obst ructive uropathy. PELVIS BLADDER: Unremarkable REPRODUCTIVE: Unremarkable. ABDOMEN & PELVIS STOMACH AND BOWEL: No evidence of bowel obstruction. The appendix is normal. PERITONEUM/RETROPERITONEUM: No evidence of pneumoperitoneum or free fluid. VASCULATURE: Mild atherosclerotic calcifications are present throughout the abdominal aorta and its b ranches. No evidence of aortic aneurysm. MUSCULOSKELETAL: No acute osseous abnormalities, left pubic symphysis sclerosis. LYMPH NODES: No gross evidence for lymphadenopathy. SOFT TISSUE/ABDOMINAL WALL: Fat-containing umbilical hernia. IMPRESSION: 1. There is sclerosis of the medial aspect of the left pubic symphysis which could represent posttra umatic changes versus degeneration.. Correlate for history of trauma. Otherwise no evidence for acute left lower quadrant process to explain patient's pain. 2. No evidence for hydronephrosis. Bilateral nonobstructing renal calculi.
== END | disposition home or self-care (01) ==
LOC: RADCTMAIN 10:44
PROVIDERS: ATTEND Urology
DX: N20.0 Calculus of kidney (principal)
CPT/HCPCS: 74176

== ENCOUNTER → 2024-04-11 | Outpatient (CLI) | payer MEDICARE ==
--- NOTE | 2024-04-11 16:19 | US ---
EXAMINATION TYPE: US kidneys/renal and bladder DATE OF EXAM: 04/11/2024 COMPARISON: 10/15/2023. CLINICAL INDICATION: Female, 73 years old with history of N20.0 KIDNEY STONE; History of kidney stone s TECHNIQUE: Grayscale imaging of the bilateral kidneys and urinary bladder: FINDINGS: EXAM MEASUREMENTS: Right Kidney: 9.7 x 5.4 x 4.3 cm Left Kidney: 9.9 x 4.2 x 4.3 cm Right Kidney: stone lower pole = 0.9cm. dilated renal pelvis similar to prior CT. Left Kidney: multiple stones, largest = 1.1cm Bladder: wnl Bilateral Jets seen: no There is no evidence for hydronephrosis at this point in time. No nephrolithiasis is seen. No junior s are identified. The urinary bladder is anechoic. IMPRESSION: 1. No evidence for acute process. No obstructive uropathy. Dilated renal pelvis similar to prior CT 10/14/2023. 2. Nonobstructing bilateral renal calculi. [facility], , 04/11/2024 4:17 PM
[2024-04-11 20:25] LABS: % Iron Saturation 28.33 (12.00-45.00); ALT 15 U/L (8-44); AST 21 U/L (13-35); Albumin/Globulin Ratio 1.74 Ratio (1.60-3.17); Alkaline Phosphatase 98 U/L (41-126); Blood Urea Nitrogen 22.9 mg/dL (9.0-27.0); Calcium 9.1 mg/dL (8.7-10.3); Carbon Dioxide 28.9 mmol/L (21.6-31.8); Chloride 102 mmol/L (96-109); Chol/HDL Ratio 2.57 Ratio; Globulin 2.3 g/dL (1.6-3.3); Glucose 99 mg/dL (70-110); Iron 85 UG/DL (50-170); LDL Cholesterol,Calculated 64.2 mg/dL (0.0-131.0); Potassium 4.3 mmol/L (3.5-5.5); Sodium 142 mmol/L (135-145); T4, Free (Free Thyroxine) 1.66 ng/dL (0.80-1.80); Total Bilirubin 1.2 mg/dL (0.3-1.2); Total Iron Binding Capacity 300 UG/DL (228-460); Total Protein 6.3 g/dL (6.2-8.2); Uric Acid 4.6 mg/dL (2.9-7.7)
== END | disposition home or self-care (01) ==
LOC: RADUSWWP 12:21
PROVIDERS: ATTEND Urology
DX: N20.0 Calculus of kidney (principal)
CPT/HCPCS: 76770; 80053; 80061; 82607; 82728; 82746; 83036; 83540; 83550; 83970; 84439; 84443; 84550

== ENCOUNTER → 2024-11-16 | Outpatient (CLI) | payer MEDICARE ==
--- NOTE | 2024-11-16 14:16 | US ---
EXAMINATION TYPE: US kidneys/renal and bladder DATE OF EXAM: 11/16/2024 COMPARISON: NONE CLINICAL INDICATION: Female, 73 years old with history of N20.0 CALCULUS KIDNEY; Hx of stones. TECHNIQUE: Grayscale imaging of the bilateral kidneys and urinary bladder: FINDINGS: EXAM MEASUREMENTS: Right Kidney: 10.9 x 5.5 x 4.9 cm Left Kidney: 10.3 x 3.9 x 1.7 cm No hydronephrosis on either side. Right Kidney: Multiple echogenic areas seen upper and lower poles largest 1 cm upper pole. Left Kidney: Multiple echogenic areas seen largest upper pole 1.7 x 2.2 cm. Bladder: Anechoic Bilateral Jets seen: yes IMPRESSION: 1. No hydronephrosis. 2. Bilateral nephrolithiasis measuring up to 1 cm on the right and 2.2 cm on the left. [facility], Workstation: [email or web address], 11/16/2024 2:14 PM
[2024-11-16 19:35] LABS: Basophils # (A) 0.06 X 10*3/uL (0.00-0.10); Basophils % (A) 0.9 %; Eosinophils # (A) 0.14 X 10*3/uL (0.04-0.35); Eosinophils % (A) 2.1 %; HCT 41.2 % (37.2-46.3); Lymphocytes # (A) 1.39 X 10*3/uL (0.90-5.00); Lymphocytes % (A) 20.5 %; MCH 31.3 pg (27.0-32.0); MCHC 31.6 g/dL (32.0-37.0); MCV 99.3 FL (80.0-97.0); Mean Platelet Volume 10.8 FL (9.5-12.2); Monocytes # (A) 0.54 X 10*3/uL (0.20-1.00); NRBC Per 100 WBC 0 X 10*3/uL (0.00-0.01); Neutrophils # (A) 4.62 X 10*3/uL (1.80-7.70); Neutrophils % (A) 68.2 %; Platelet Count 136 X 10*3/uL (140-440); RBC 4.15 X 10*6/uL (4.10-5.20); RDW 12.3 % (11.5-14.5); WBC 6.77 X 10*3/uL (4.50-10.00)
[2024-11-16 19:54] LABS: BUN/Creat Ratio 21.56 Ratio (12.00-20.00); Blood Urea Nitrogen 19.4 mg/dL (9.0-27.0); Calcium 8.8 mg/dL (8.7-10.3); Carbon Dioxide 27.9 mmol/L (21.6-31.8); Chloride 103 mmol/L (96-109); Glucose 91 mg/dL (70-110); Potassium 4.4 mmol/L (3.5-5.5); Sodium 140 mmol/L (135-145); Uric Acid 4.6 mg/dL (2.9-7.7)
== END | disposition home or self-care (01) ==
LOC: RADUSWWP 13:24
PROVIDERS: ATTEND Urology
DX: N20.0 Calculus of kidney (principal)
CPT/HCPCS: 76770; 80048; 84550; 85025